=== PATIENT | female | born 1940 | race Caucasian/White ===

== ENCOUNTER 2020-03-24 09:51 | Inpatient (IN) ==
[2020-03-24] MEDS ORDERED: ONDANSETRON 4 MG/2 ML VIAL IV ONE (10:18)
[2020-03-24] MEDS ORDERED: 0.9 % SODIUM CHLORIDE 1,000 ML IV ONE (10:18)
--- NOTE | 2020-03-24 10:20 | Emergency Department Note ---
Abdominal Pain HPI General Chief Complaint: Abdominal Pain Stated Complaint: Bowel Obstruction, UTI Time Seen by Provider: 03/24/20 09:55 Source: patient Mode of arrival: ambulatory Limitations: no limitations History of Present Illness HPI Narrative: Narrative: 79-year-old female comes in for nausea and vomiting th is morning. She is not able to hold anything down. She was discharged from [facility] [address] Bean, general surgeon, after being in the hospital for a bowel obstruction. She was able to have a bowel obstruction before leaving the hospital but has not had one since. However she is passing gas. She denies any fever chills cough congestion or shortness of breath. No exposure to Covid and Covid test was negative in the hospital last week. She is urinating well since having a Arevalo catheter placed for urinary retention. She has that replaced every month at urology. She currently has a leg bag on. Advises me that she gets very nauseous with pain medicine but is having severe pain such that she could not sleep last night-she did try to take some pain medicine but it did not help much She has a history of nephrectomy for renal cell carcinoma. She has had multiple other [facility] surgeries including prior colectomy, hysterectomy for endometrial cancer, and cholecystectomy Dr. Lee is her kidney doctor Related Data Home Medications Medication Instructions Recorded Confirmed cholecalciferol (vitamin D3) 5,000 unit PO DAILY 07/14/19 03/24/20 cyanocobalamin (vitamin B-12) 1,000 mcg IJ MONTHLY 07/14/19 03/24/20 hydrochlorothiazide 12.5 mg tablet 12.5 mg PO QAM 02/28/20 03/24/20 Allergies Allergy/AdvReac Type Severity Reaction Status Date / Time monosodium glutamate AdvReac Mild Sneezing Verified 02/28/20 15:04 morphine AdvReac Mild Nausea Verified 02/28/20 15:04 sulfates found in food AdvReac Mild Sneezing Uncoded 01/24/20 14:40 Review of Systems ROS ROS Narrative: Narrative: All systems ED: reviewed and negative except as stated. PFSH Narrative Patient History Narrative: Narrative: Medical/Surgical/Family History All Active Problems (Updated 03/24/20 @ 15:23 by Lisandra Smith MD) Chronic renal failure, stage 3 (moderate) (Acute) Flank pain (Acute) Partial obstruction of small intestine (Acute) Urine retention (Acute) Renal mass (Chronic) History of radiation therapy (Chronic) Cyst (Chronic) Paresthesia of lower extremity (Chronic) Temperature intolerance (Chronic) Dry mouth (Chronic) Weight loss (Chronic) Cellulitis of eyelid (Chronic) Chest tightness (Chronic) Hydronephrosis (Chronic) Fatigue (Chronic) Acute kidney injury (Chronic) Osteopenia (Chronic) Dysuria (Chronic) Adenocarcinoma (Chronic) Malignant neoplasm of endometrium (Chronic) Other fatigue (Chronic) Other primary thrombocytopenia (Chronic) Generalized enlarged lymph nodes (Chronic) Pain in left knee (Chronic) Fatty liver (Chronic) Morbidly obese (Chronic) Abnormal glucose (Chronic) Low back pain (Chronic) Paresthesia of skin (Chronic) Hyperglyceridemia, pure (Chronic) Disorder of bone density and structure, unspecified (Chronic) Osteoarthritis of hip (Chronic) Umbilical hernia without obstruction or gangrene (Chronic) Ventral hernia without obstruction or gangrene (Chronic) Malignant neoplasm of unspecified kidney, except renal pelvis (Chronic) Encounter for screening for malignant neoplasm of colon (Chronic) Vitamin B deficiency (Chronic) Encounter for screening mammogram for malignant neoplasm of breast (Chronic) Impacted cerumen, bilateral (Chronic) Abdominal pain (Chronic) Urinary system disease (Chronic) Hyperlipidemia (Chronic) Renal osteodystrophy (Chronic) Vitamin D deficiency (Chronic) Anemia (Chronic) Cough (Chronic) Splenomegaly (Chronic) Left kidney mass (Chronic) Neurogenic bladder (Chronic) Kidney disease, chronic, stage III (GFR 30-59 ml/min) (Chronic) Overactive bladder (Chronic) Nocturia (Chronic) Hydronephrosis due to obstruction of bladder (Chronic) Edema (Chronic) Arevalo catheter in place (Chronic ~10/2017) Bladder outlet obstruction (Chronic ~10/2017) Renal cell carcinoma (Chronic) Hypertension (Chronic) CKD (chronic kidney disease) (Chronic) Medical History Abdominal pain (Chronic) Abnormal glucose (Chronic) Acute kidney injury (Chronic) Adenocarcinoma (Chronic) Anemia (Chronic) Bladder outlet obstruction (Chronic ~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) Cellulitis of eyelid (Chronic) Chest tightness (Chronic) CKD (chronic kidney disease) (Chronic) Cough (Chronic) Cyst (Chronic) Disorder of bone density and structure, unspecified (Chronic) Dry mouth (Chronic) Dysuria (Chronic) Edema (Chronic) Encounter for screening for malignant neoplasm of colon (Chronic) Encounter for screening mammogram for malignant neoplasm of breast (Chronic) Fatigue (Chronic) Fatty liver (Chronic) Arevalo catheter in place (Chronic ~10/2017) Generalized enlarged lymph nodes (Chronic) History of mammogram (Chronic 12/20/08) History of radiation therapy (Chronic) Hydronephrosis (Chronic) 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, pure (Chronic) Hyperlipidemia (Chronic) Hypertension (Chronic) Impacted cerumen, bilateral (Chronic) Kidney disease, chronic, stage III (GFR 30-59 ml/min) (Chronic) Left kidney mass (Chronic) Low back pain (Chronic) Malignant neoplasm of endometrium (Chronic) Malignant neoplasm of unspecified kidney, except renal pelvis (Chronic) Morbidly obese (Chronic) Neurogenic bladder (Chronic) Nocturia (Chronic) Osteoarthritis of hip (Chronic) Osteopenia (Chronic) Other fatigue (Chronic) Other primary thrombocytopenia (Chronic) Overactive bladder (Chronic) Pain in left knee (Chronic) Paresthesia of lower extremity (Chronic) Paresthesia of skin (Chronic) Renal cell carcinoma (Chronic) Renal mass (Chronic) Renal osteodystrophy (Chronic) Splenomegaly (Chronic) Temperature intolerance (Chronic) Umbilical hernia without obstruction or gangrene (Chronic) Urinary system disease (Chronic) Ventral hernia without obstruction or gangrene (Chronic) Vitamin B deficiency (Chronic) Vitamin D deficiency (Chronic) Weight loss (Chronic) Surgical History H/O kidney removal (Chronic) H/O: hysterectomy (Chronic) History of bowel resection (Chronic) History of carpal tunnel release (Chronic) History of cholecystectomy (Chronic) History of knee surgery (Chronic) History of oophorectomy (Chronic) History of partial gastrectomy (Chronic) Family History Sister FHx: kidney cancer x2 sisters. Melanoma Renal cell carcinoma Daughter Melanoma Mother , 75 Bruising Bleeding Blood clotting tendency Father , 75 Heart disease Myocardial infarction Sister , 49 Encephalitis Other Malignant neoplasm Social History Smoking Status: Former smoker Alcohol Intake Frequency: 0-2 drinks per day Substance Use: does not use Exam Narrative Narrative: Narrative: Normocephalic atraumatic. Conjunctive are clear sclerae white nonicteric. No nasal discharge or congestion. Oropharynx pink and moist. Neck is supple without lymphadenopathy or thyromegaly. Heart is regular rate and rhythm no murmur appreciated. Lungs clear to auscultation bilaterally without wheezes rales rhonchi or respiratory distress. Abdomen is soft diffusely tender but I do not see any point tenderness; overweight. Normal acti ve bowel sounds. No pedal edema. She is alert oriented able to answer questions appropriately General Limitations: no limitations Course Vital Signs Vital signs: Vital Signs Temperature 97.5 F 03/24/20 09:52 Pulse Rate 87 03/24/20 09:52 Respiratory Rate 18 03/24/20 09:52 Blood Pressure 125/83 03/24/20 09:52 Pulse Oximetry (%) 97 03/24/20 09:52 Temperature 97.9 F 03/24/20 19:04 Pulse Rate 71 03/24/20 19:04 Respiratory Rate 18 03/24/20 19:04 Blood Pressure 97/61 03/24/20 19:04 Pulse Oximetry (%) 95 03/24/20 19:04 MDM MDM Narrative Medical decision making narrative: Narrative: Concern for repeat bowel obstruction versus ileus. We will get records from [facility]. Laboratory and x-ray ordered. Start pain medicine nausea medicine IV fluid X-ray of the abdomen shows air-fluid levels on the upright consistent with recurrence of partial bowel obstruction. Supine films with bowel gas pattern suggestive of same Labs showed no acute change. Covid screening is negative Discussed findings with the patient and with general surgeon . He agreed to come see the patient in the ER-she is admitted from the ER Medical Records Medical records reviewed: Yes I reviewed the patient's medical records. Medical records narrative: Reviewed records from recent stay at [facility] including history and physical, general surgical consultation and discharge summary. She was treated for small bowel obstruction versus ileus plus urinary tract infection Lab Data Lab results reviewed: Yes I reviewed the patient's lab results. Result diagrams: 03/24/20 10:48 03/24/20 10:48 Labs: Lab Results 03/24/20 03/24/20 03/24/20 Range/Units 10:48 10:48 10:48 WBC 9.7 (4.5-11.0) K/mcL RBC 4.24 (4.00-5.20) M/mcL Hgb 13.1 (12.0-15.0) g/dL Hct 39.5 (36.0-48.0) % MCV 93.2 (80.0-100.0) fL MCH 30.9 (26.0-34.0) pg MCHC 33.2 (31.0-36.0) g/dL RDW 12.9 (11.5-14.5) % Plt Count 167 (140-440) K/mcL MPV 11.5 H (7.4-10.4) fL Neut % (Auto) 86.6 H (38.0-78.0) % Lymph % (Auto) 7.7 L (15.0-49.0) % [place] % (Auto) 4.5 (1.0-12.0) % Eos % (Auto) 1.0 (0.0-7.0) % Baso % (Auto) 0.2 (0.0-2.0) % Lymph # (Auto) 0.75 L (1.50-4.80) K/mcL [place] # (Auto) 0.44 (0.10-0.90) K/mcL Eos # (Auto) 0.10 (0.00-0.70) K/mcL Baso # (Auto) 0.02 (0.00-0.20) K/mcL Absolute Neutrophils 8.39 H (1.80-8.00) K/mcL VBG Lactic Acid 1.5 (0.5-2.0) mmol/L Sodium 139 (133-145) mmol/L Potassium 3.7 (3.3-5.1) mmol/L Chloride 101 (96-108) mmol/L Carbon Dioxide 24 (22-30) mmol/L Anion Gap 14.0 (8.0-16.0) BUN 40 H (8-23) mg/dL Creatinine 2.7 H (0.6-1.1) mg/dL GFR Calculation 16 Glucose 127 H (70-105) mg/dL Calcium 9.2 (8.6-10.4) mg/dL Total Bilirubin 0.4 (0.1-1.0) mg/dL AST 16 (<32) U/L ALT 7 (<40) U/L Alkaline Phosphatase 122 H (39-117) U/L Total Protein 7.1 (5.9-8.4) gm/dL Albumin 3.5 (3.2-5.2) gm/dL Globulin 3.6 (2.2-3.7) gm/dL Albumin/Globulin Ratio 1.0 (1.0-2.3) Lipase 30 (7-60) U/L Urine Color Urine Appearance (Clear) Urine pH (5.0-9.0) Ur Specific [place] (1.000-1.035) Urine Protein (Negative) mg/dL Urine Glucose (UA) (Negative) mg/dL Urine Ketones (Negative) mg/dL Urine Occult Blood (Negative) mg/dL Urine Nitrate (Negative) Urine Bilirubin (Negative) mg/dL Urine Urobilinogen mg/dL Ur Leukocyte Esterase (Negative) /ug Urine RBC (0-3) /hpf Urine WBC (0-4) /hpf Ur Squamous Epith Cells (0-4) /hpf Urine Bacteria (0) /hpf Hyaline Casts (0-2) /lph Granular Casts (0-0) /lph Urine Mucus (None) /hpf Ur Culture Indicated? 03/24/20 Range/Units 11:28 WBC (4.5-11.0) K/mcL RBC (4.00-5.20) M/mcL Hgb (12.0-15.0) g/dL Hct (36.0-48.0) % MCV (80.0-100.0) fL MCH (26.0-34.0) pg MCHC (31.0-36.0) g/dL RDW (11.5-14.5) % Plt Count (140-440) K/mcL MPV (7.4-10.4) fL Neut % (Auto) (38.0-78.0) % Lymph % (Auto) (15.0-49.0) % [place] % (Auto) (1.0-12.0) % Eos % (Auto) (0.0-7.0) % Baso % (Auto) (0.0-2.0) % Lymph # (Auto) (1.50-4.80) K/mcL [place] # (Auto) (0.10-0.90) K/mcL Eos # (Auto) (0.00-0.70) K/mcL Baso # (Auto) (0.00-0.20) K/mcL Absolute Neutrophils (1.80-8.00) K/mcL VBG Lactic Acid (0.5-2.0) mmol/L Sodium (133-145) mmol/L Potassium (3.3-5.1) mmol/L Chloride (96-108) mmol/L Carbon Dioxide (22-30) mmol/L Anion Gap (8.0-16.0) BUN (8-23) mg/dL Creatinine (0.6-1.1) mg/dL GFR Calculation Glucose (70-105) mg/dL Calcium (8.6-10.4) mg/dL Total Bilirubin (0.1-1.0) mg/dL AST (<32) U/L ALT (<40) U/L Alkaline Phosphatase (39-117) U/L Total Protein (5.9-8.4) gm/dL Albumin (3.2-5.2) gm/dL Globulin (2.2-3.7) gm/dL Albumin/Globulin Ratio (1.0-2.3) Lipase (7-60) U/L Urine Color Yellow Urine Appearance Clear (Clear) Urine pH 5.0 (5.0-9.0) Ur Specific [place] 1.021 (1.000-1.035) Urine Protein 100 A (Negative) mg/dL Urine Glucose (UA) Negative (Negative) mg/dL Urine Ketones 5 A (Negative) mg/dL Urine Occult Blood 0.20 (Negative) mg/dL Urine Nitrate Negative (Negative) Urine Bilirubin Negative (Negative) mg/dL Urine Urobilinogen Negative mg/dL Ur Leukocyte Esterase 25 A (Negative) /ug Urine RBC 20 H (0-3) /hpf Urine WBC 5 H (0-4) /hpf Ur Squamous Epith Cells 6 H (0-4) /hpf Urine Bacteria Few A (0) /hpf Hyaline Casts 1 (0-2) /lph Granular Casts 5 H (0-0) /lph Urine Mucus Few A (None) /hpf Ur Culture Indicated? No Radiology Data Radiology results reviewed: Yes I reviewed the patient's radiology results. Discharge Plan Patient/Caregiver Discharge Instructions Pt seen by FELT CUTTING MACHINE OPERATOR/PA only: No Clinical Impression: Partial obstruction of small intestine Patient Disposition: Xfer As Inpt ([facility]) Condition: Fair Discharge Date/Time: 03/24/20 15:55
[2020-03-24] MEDS: HYDROmorphone 0.5 MG/0.5 ML SYRINGE IV PRN ×3 (11:05→17:04)
[2020-03-24 11:35] LABS: Basophils # (Auto) 0.02 K/mcL (0.00-0.20); Basophils % (Auto) 0.2 % (0.0-2.0); Hematocrit 39.5 % (36.0-48.0); Hemoglobin 13.1 g/dL (12.0-15.0); Lymphocytes # (Auto) 0.75 K/mcL (1.50-4.80); Lymphocytes % (Auto) 7.7 % (15.0-49.0); Mean Cell Volume 93.2 fL (80.0-100.0); Mean Corpuscular HGB Conc 33.2 g/dL (31.0-36.0); Mean Platelet Volume 11.5 fL (7.4-10.4); Monocytes # (Auto) 0.44 K/mcL (0.10-0.90); Monocytes % (Auto) 4.5 % (1.0-12.0); Neutrophils % (Auto) 86.6 % (38.0-78.0); Platelet Count 167 K/mcL (140-440); RBC 4.24 M/mcL (4.00-5.20); Red Cell Distribution Width 12.9 % (11.5-14.5); WBC 9.7 K/mcL (4.5-11.0)
[2020-03-24 11:53] LABS: ALT/SGPT 7 U/L (<40); AST/SGOT 16 U/L (<32); Albumin 3.5 gm/dL (3.2-5.2); Alkaline Phosphatase 122 U/L (39-117); Bilirubin,Total 0.4 mg/dL (0.1-1.0); Blood Urea Nitrogen 40 mg/dL (8-23); Calcium 9.2 mg/dL (8.6-10.4); Carbon Dioxide 24 mmol/L (22-30); Chloride 101 mmol/L (96-108); Globulin 3.6 gm/dL (2.2-3.7); Glomerular Filtration Rate 16; Glucose 127 mg/dL (70-105)
--- NOTE | 2020-03-24 12:01 | XRay Report ---
CLINICAL INFORMATION: Bowel obstruction, nv COMPARISON: None. FINDINGS: The stomach, duodenal multiple loops of jejunum are mildly dilated with air-fluid levels. The distal small bowel and colon are decompressed. No free air, soft tissue mass or organomegaly. IMPRESSION: Partial distal small bowel obstruction Interpreted and Authenticated by: Ryan Dowling 03/24/20
[2020-03-24 12:57] LABS: Appearance,Urine CLEAR (Clear); Bacteria,Urine FEW /hpf (0); Bilirubin,Urine Negative (Negative); Color,Urine YELLOW; Culture Indicated,Urine No; Glucose,Urine (UA) Negative (Negative); Ketones,Urine 5 mg/dL (Negative); Leukocyte Esterase,Urine 25 /ug (Negative); Mucus,Urine FEW /hpf; Nitrate,Urine Negative (Negative); Protein,Urine 100 mg/dL (Negative); Specific Gravity,Urine 1.021 (1.000-1.035); Urine Granular Cast 5 /lph (0-0); Urine Hyaline Cast 1 /lph (0-2); Urine RBC 20 /hpf (0-3); Urine Squamous Epithelial Cell 6 /hpf (0-4); Urine WBC 5 /hpf (0-4); Urobilinogen,Urine Negative
--- NOTE | 2020-03-24 15:19 | General Surg History&Physical ---
HPI History of Present Illness Patient information: Note initiated : 03/24/20 at 3:08 pm Service Date, if different from initiated Date: [] Patient: Kaylyn Rodriguez a 79 y/o F admitted on for Bowel Obstruction, UTI. Chief Complaint: [] Chief complaint: partial small bowel obstruction History of present illness: Ms. Rodriguez is a 79 year old F was admitted through the ER for evaluation of recurrent abdominal distention with nausea and vomiting. The patient was recently admitted to [facility] on and march with complaint of abdominal pain, nausea and vomiting. She was treated and released on Friday of this week. Said she did well for 1 day but then had recurrent symptoms which started on yesterday. She has severe pain with nausea and vomiting brown emesis. She also had increased abdominal distention. Patient came to the emergency room where plain films suggest either severe adynamic ileus or partial obstruction. Patient is status post status post partial gastrectomy, abdominal hysterectomy with bilateral salpingo- oophorectomy, incisional hernia repair, partial bowel resection, cho lecystectomy, bilateral oophorectomy, left nephrectomy. She has also had radiation therapy to her abdomen related to her left nephrectomy. Patient has no history of heart disease. She had a negative stress test in September 2019. She has chronic bladder outlet obstruction, which requires chronic Arevalo catheter placement with changes monthly. She also has chronic renal failure related to her previous nephrectomy as well as episodes of bladder outlet obstruction and hydronephrosis. Constitutional Constitutional: Present chills, fatigue, malaise, weakness and weight gain EENT Ears: Absent decreased hearing and ear pain Nose, mouth and throat: Absent hoarseness Cardiovascular Cardiovascular: Absent chest pain, chest pain at rest, dyspnea on exertion and edema Respiratory Respiratory: Absent cough, dyspnea, wheezing and chest congestion Gastrointestinal Gastrointestinal: Present abdominal pain, belching, bloating, change in bowel habits, constipation, cramping, nausea and vomiting Genitourinary Genitourinary: Present change in urinary stream, difficulty urinating, difficulty voiding, dysuria and urinary urgency Musculoskeletal Musculoskeletal: Present arthralgias, back pain, muscle weakness, myalgias, stiffness and tingling; Absent atrophy, muscle cramps and numbness Integumentary Integumentary: Absent pruritus and rash Neurological Neurological: Present restless legs; Absent dizziness, memory loss, numbness and sensory deficit Psychiatric Psychiatric: Present anxiety and depression Endocrine Endocrine: Present change in body appearance and fatigue; Absent palpitations Hematologic/Lymphatic Hematologic/Lymphatic: Present easy bleeding, easy bruising and lymphadenopathy PFSH PFSH All Active Problems (Updated 03/24/20 @ 15:23 by Lisandra Smith MD) Chronic renal failure, stage 3 (moderate) (Acute) Flank pain (Acute) Partial obstruction of small intestine (Acute) Urine retention (Acute) Renal mass (Chronic) History of radiation therapy (Chronic) Cyst (Chronic) Paresthesia of lower extremity (Chronic) Temperature intolerance (Chronic) Dry mouth (Chronic) Weight loss (Chronic) Cellulitis of eyelid (Chronic) Chest tightness (Chronic) Hydronephrosis (Chronic) Fatigue (Chronic) Acute kidney injury (Chronic) Osteopenia (Chronic) Dysuria (Chronic) Adenocarcinoma (Chronic) Malignant neoplasm of endometrium (Chronic) Other fatigue (Chronic) Other primary thrombocytopenia (Chronic) Generalized enlarged lymph nodes (Chronic) Pain in left knee (Chronic) Fatty liver (Chronic) Morbidly obese (Chronic) Abnormal glucose (Chronic) Low back pain (Chronic) Paresthesia of skin (Chronic) Hyperglyceridemia, pure (Chronic) Disorder of bone density and structure, unspecified (Chronic) Osteoarthritis of hip (Chronic) Umbilical hernia without obstruction or gangrene (Chronic) Ventral hernia without obstruction or gangrene (Chronic) Malignant neoplasm of unspecified kidney, except renal pelvis (Chronic) Encounter for screening for malignant neoplasm of colon (Chronic) Vitamin B deficiency (Chronic) Encounter for screening mammogram for malignant neoplasm of breast (Chronic) Impacted cerumen, bilateral (Chronic) Abdominal pain (Chronic) Urinary system disease (Chronic) Hyperlipidemia (Chronic) Renal osteodystrophy (Chronic) Vitamin D deficiency (Chronic) Anemia (Chronic) Cough (Chronic) Splenomegaly (Chronic) Left kidney mass (Chronic) Neurogenic bladder (Chronic) Kidney disease, chronic, stage III (GFR 30-59 ml/min) (Chronic) Overactive bladder (Chronic) Nocturia (Chronic) Hydronephrosis due to obstruction of bladder (Chronic) Edema (Chronic) Arevalo catheter in place (Chronic ~10/2017) Bladder outlet obstruction (Chronic ~10/2017) Renal cell carcinoma (Chronic) Hypertension (Chronic) CKD (chronic kidney disease) (Chronic) Medical History Abdominal pain (Chronic) Abnormal glucose (Chronic) Acute kidney injury (Chronic) Adenocarcinoma (Chronic) Anemia (Chronic) Bladder outlet obstruction (Chronic ~10/2017) Cellulitis of eyelid (Chronic) Chest tightness (Chronic) CKD (chronic kidney disease) (Chronic) Cough (Chronic) Cyst (Chronic) Disorder of bone density and structure, unspecified (Chronic) Dry mouth (Chronic) Dysuria (Chronic) Edema (Chronic) Encounter for screening for malignant neoplasm of colon (Chronic) Encounter for screening mammogram for malignant neoplasm of breast (Chronic) Fatigue (Chronic) Fatty liver (Chronic) Arevalo catheter in place (Chronic ~10/2017) Generalized enlarged lymph nodes (Chronic) History of mammogram (Chronic 12/20/08) History of radiation therapy (Chronic) Hydronephrosis (Chronic) 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, pure (Chronic) Hyperlipidemia (Chronic) Hypertension (Chronic) Impacted cerumen, bilateral (Chronic) Kidney disease, chronic, stage III (GFR 30-59 ml/min) (Chronic) Left kidney mass (Chronic) Low back pain (Chronic) Malignant neoplasm of endometrium (Chronic) Malignant neoplasm of unspecified kidney, except renal pelvis (Chronic) Morbidly obese (Chronic) Neurogenic bladder (Chronic) Nocturia (Chronic) Osteoarthritis of hip (Chronic) Osteopenia (Chronic) Other fatigue (Chronic) Other primary thrombocytopenia (Chronic) Overactive bladder (Chronic) Pain in left knee (Chronic) Paresthesia of lower extremity (Chronic) Paresthesia of skin (Chronic) Renal cell carcinoma (Chronic) Renal mass (Chronic) Renal osteodystrophy (Chronic) Splenomegaly (Chronic) Temperature intolerance (Chronic) Umbilical hernia without obstruction or gangrene (Chronic) Urinary system disease (Chronic) Ventral hernia without obstruction or gangrene (Chronic) Vitamin B deficiency (Chronic) Vitamin D deficiency (Chronic) Weight loss (Chronic) Surgical History H/O kidney removal (Chronic) H/O: hysterectomy (Chronic) History of bowel resection (Chronic) History of carpal tunnel release (Chronic) History of cholecystectomy (Chronic) History of knee surgery (Chronic) History of oophorectomy (Chronic) History of partial gastrectomy (Chronic) Family History Sister FHx: kidney cancer x2 sisters. Melanoma Renal cell carcinoma Daughter Melanoma Mother , 75 Bruising Bleeding Blood clotting tendency Father , 75 Heart disease Myocardial infarction Sister , 49 Encephalitis Other Malignant neoplasm Social History marital status: occupational status: retired occupation: [employer] other: Children-2 smoking status: Former smoker alcohol intake frequency: 0-2 drinks per day substance use type: does not use MEDS/ALLERGIES Home Medications and Allergies Home Medications Medication Instructions Recorded Confirmed Type cholecalciferol (vitamin D3) 5,000 unit PO DAILY 07/14/19 02/28/20 History cyanocobalamin (vitamin B-12) 1,000 mcg IJ MONTHLY 07/14/19 02/28/20 History potassium chloride PO 09/15/19 02/28/20 History epoetin debbie-epbx 10,000 unit/mL 10,000 unit SUB-Q [id number] ml 09/23/19 02/28/20 History injection solution ciprofloxacin PO QDAY 02/28/20 02/28/20 History hydrochlorothiazide 12.5 mg tablet 12.5 mg PO QAM 02/28/20 02/28/20 History Allergies Allergy/AdvReac Type Severity Reaction Status Date / Time monosodium glutamate AdvReac Mild Sneezing Verified 02/28/20 15:04 morphine AdvReac Mild Nausea Verified 02/28/20 15:04 sulfates found in food AdvReac Mild Sneezing Uncoded 01/24/20 14:40 Physical Examination Vital Signs Vital signs: Temp Pulse Resp BP Pulse Ox 97.5 F 79 16 123/66 96 03/24/20 09:52 03/24/20 13:50 03/24/20 13:50 03/24/20 13:50 03/24/20 13:50 General physical appearance General physical exam: well developed, well nourished and moderate pain Eyes Eye exam: PERRL, normal ocular movement and pale ENT ENT exam: normal pinna, normal nares, normal mucosa, no hearing loss and decreased hearing Head Head exam IM: Present atraumatic, normal inspection and normocephalic Neck Neck exam: no masses, no bruits, trachea midline, no lymphadenopathy and no venous distension Cardiovascular Cardiovascular exam IM: Present normal rate and rhythm, irregular rhythm, +S1 and +S2; Absent JVD Respiratory Respiratory exam: normal expansion, normal respiratory effort, clear to percussion and clear to auscultation Abdomen Abdomen: Present soft, non tender, tender and bowel sounds Integumentary Integumentary: Present no rash, no growths and no abnormal pigmentation Neurologic Neurologic: Present normal coordination and normal sensation Musculoskeletal Musculoskeletal: Present normal gait and normal posture Psychiatric Psychiatric: Present oriented to time, oriented to person, oriented to place, speech is normal and memory intact Results Labs Result diagrams: 03/24/20 10:48 03/24/20 10:48 Labs: Abnormal lab results 03/24/20 03/24/20 03/24/20 Range/Units 10:48 10:48 11:28 MPV 11.5 H (7.4-10.4) fL Neut % (Auto) 86.6 H (38.0-78.0) % Lymph % (Auto) 7.7 L (15.0-49.0) % Lymph # (Auto) 0.75 L (1.50-4.80) K/mcL Absolute Neutrophils 8.39 H (1.80-8.00) K/mcL BUN 40 H (8-23) mg/dL Creatinine 2.7 H (0.6-1.1) mg/dL Glucose 127 H (70-105) mg/dL Alkaline Phosphatase 122 H (39-117) U/L Urine Protein 100 A (Negative) mg/dL Urine Ketones 5 A (Negative) mg/dL Ur Leukocyte Esterase 25 A (Negative) /ug Urine RBC 20 H (0-3) /hpf Urine WBC 5 H (0-4) /hpf Ur Squamous Epith Cells 6 H (0-4) /hpf Urine Bacteria Few A (0) /hpf Granular Casts 5 H (0-0) /lph Urine Mucus Few A (None) /hpf Diabetes panel 03/24/20 Range/Units 10:48 Sodium 139 (133-145) mmol/L Potassium 3.7 (3.3-5.1) mmol/L Chloride 101 (96-108) mmol/L Carbon Dioxide 24 (22-30) mmol/L BUN 40 H (8-23) mg/dL Creatinine 2.7 H (0.6-1.1) mg/dL Glucose 127 H (70-105) mg/dL Calcium 9.2 (8.6-10.4) mg/dL AST 16 (<32) U/L ALT 7 (<40) U/L Alkaline Phosphatase 122 H (39-117) U/L Total Protein 7.1 (5.9-8.4) gm/dL Albumin 3.5 (3.2-5.2) gm/dL Calcium panel 03/24/20 Range/Units 10:48 Calcium 9.2 (8.6-10.4) mg/dL Albumin 3.5 (3.2-5.2) gm/dL Pituitary panel 03/24/20 Range/Units 10:48 Sodium 139 (133-145) mmol/L Potassium 3.7 (3.3-5.1) mmol/L Chloride 101 (96-108) mmol/L Carbon Dioxide 24 (22-30) mmol/L BUN 40 H (8-23) mg/dL Creatinine 2.7 H (0.6-1.1) mg/dL Glucose 127 H (70-105) mg/dL Calcium 9.2 (8.6-10.4) mg/dL Adrenal panel 03/24/20 Range/Units 10:48 Sodium 139 (133-145) mmol/L Potassium 3.7 (3.3-5.1) mmol/L Chloride 101 (96-108) mmol/L Carbon Dioxide 24 (22-30) mmol/L BUN 40 H (8-23) mg/dL Creatinine 2.7 H (0.6-1.1) mg/dL Glucose 127 H (70-105) mg/dL Calcium 9.2 (8.6-10.4) mg/dL Total Bilirubin 0.4 (0.1-1.0) mg/dL AST 16 (<32) U/L ALT 7 (<40) U/L Alkaline Phosphatase 122 H (39-117) U/L Total Protein 7.1 (5.9-8.4) gm/dL Albumin 3.5 (3.2-5.2) gm/dL All other labs normal. A/P Assessment and plan (1) Partial obstruction of small intestine: Status: Acute (2) Chronic renal failure, stage 3 (moderate): Status: Acute Qualifiers: Chronic kidney disease stage 3 subtype: stage 3a (GFR 45-59) Qualified Code(s): N18.31 - Chronic kidney disease, stage 3a (3) Malignant neoplasm of unspecified kidney, except renal pelvis: Status: Chronic Qualifiers: Laterality: left Qualified Code(s): C64.2 - Malignant neoplasm of left kidney, except renal pelvis (4) Neurogenic bladder: Status: Chronic (5) Hypertension: Status: Chronic Qualifiers: Hypertension type: essential hypertension Qualified Code(s): I10 - Essential (primary) hypertension Narrative A/P Narrative: ice chips and popsicles. Reglan 10 mg IV every 6 hours Relistor 12 mg subcutaneous daily 4 doses Follow-up abdominal x-rays in the morning. Probable small bowel follow-through in the morning. Repeat CBC and inpatient panel daily. IV normal saline at 100 cc per hour Time Spent With Patient Time: Total time spent is greater than 50% in coordination of care (as documented) at patient's floor/unit and/or counseling patient:
[2020-03-24] MEDS ORDERED: LORazepam 2 MG/ML VIAL IV PRN (15:29)
[2020-03-24] MEDS: 0.9 % SODIUM CHLORIDE 1,000 ML IV SCH (16:15)
[2020-03-24] MEDS: METHYLNALTREXONE BROMIDE 12 MG/0.6 ML SYRINGE SQ SCH (16:18)
[2020-03-24] MEDS: ONDANSETRON 4 MG/2 ML VIAL IV PRN (17:04)
[2020-03-24] MEDS: 0.9 % SODIUM CHLORIDE 10 ML SYRINGE IV SCH (20:44)
[2020-03-25] MEDS: 0.9 % SODIUM CHLORIDE 1,000 ML IV SCH ×3 (02:22→21:41)
[2020-03-25] MEDS: HYDROmorphone 0.5 MG/0.5 ML SYRINGE IV PRN ×2 (02:22→05:55)
[2020-03-25] MEDS: ONDANSETRON 4 MG/2 ML VIAL IV PRN (05:56)
[2020-03-25 06:25] LABS: Basophils # (Auto) 0.02 K/mcL (0.00-0.20); Basophils % (Auto) 0.3 % (0.0-2.0); Eosinophils % (Auto) 1.5 % (0.0-7.0); Hematocrit 33.3 % (36.0-48.0); Hemoglobin 10.8 g/dL (12.0-15.0); Lymphocytes # (Auto) 0.66 K/mcL (1.50-4.80); Lymphocytes % (Auto) 9.9 % (15.0-49.0); Mean Cell Volume 95.1 fL (80.0-100.0); Mean Corpuscular HGB Conc 32.4 g/dL (31.0-36.0); Mean Platelet Volume 11.4 fL (7.4-10.4); Monocytes # (Auto) 0.35 K/mcL (0.10-0.90); Monocytes % (Auto) 5.2 % (1.0-12.0); Neutrophils % (Auto) 83.1 % (38.0-78.0); Platelet Count 135 K/mcL (140-440); WBC 6.7 K/mcL (4.5-11.0)
[2020-03-25] MEDS: 0.9 % SODIUM CHLORIDE 10 ML SYRINGE IV SCH ×2 (06:27→14:12)
[2020-03-25 06:52] LABS: ALT/SGPT 35 U/L (<40); AST/SGOT 52 U/L (<32); Albumin 2.8 gm/dL (3.2-5.2); Albumin/Globulin Ratio 0.9 (1.0-2.3); Alkaline Phosphatase 156 U/L (39-117); Bilirubin,Direct < 0.2 mg/dL (<0.3); Bilirubin,Total 0.3 mg/dL (0.1-1.0); Blood Urea Nitrogen 39 mg/dL (8-23); Calcium 8.3 mg/dL (8.6-10.4); Carbon Dioxide 21 mmol/L (22-30); Chloride 109 mmol/L (96-108); Glomerular Filtration Rate 17; Glucose 72 mg/dL (70-105); Lactate Dehydrogenase 190 U/L (135-225); Phosphorous 4.1 mg/dL (2.5-4.5); Triglycerides 168 mg/dL (<150)
[2020-03-25] MEDS ORDERED: PROMETHAZINE 25 MG/ML VIAL IV PRN (08:35)
[2020-03-25] MEDS: METHYLNALTREXONE BROMIDE 12 MG/0.6 ML SYRINGE SQ SCH (10:08)
--- NOTE | 2020-03-25 12:09 | XRay Report ---
CLINICAL INFORMATION: preop evaluation COMPARISON: None. FINDINGS: Heart size, mediastinum and pulmonary vessels are normal. There is minor left basilar atelectasis and tiny left pleural effusion. Few tiny calcified granulomas present in the perihilar regions. IMPRESSION: Minor left basilar atelectasis. Interpreted and Authenticated by: Ryan Dowling 03/25/20
--- NOTE | 2020-03-25 14:17 | General Surgery Progress Note ---
SUBJECTIVE Subjective Patient information: Note initiated : 03/25/20 at 2:12 pm Service Date, if different from initiated Date: [] Patient: Kaylyn Rodriguez 79 y/o F admitted on 03/24/20 for Bowel Obstruction, UTI. Chief Complaint: [] Principal diagnosis: partial small bowel obstruction Interval history: patient is undergoing small bowel follow-through. X-rays shows that contrast has reached the colon. She had large volume bowel movement earlier today and states that she feels better. Her abdominal distention is improved. BUN 39, creatinine 2.8, white blood count 6.7, hemoglobin 10.8, hematocrit 33.3 Constitutional Vitals: Vital Signs Temp Pulse Resp BP Pulse Ox 97.9 F 68 16 100/73 95 03/25/20 11:28 03/25/20 11:28 03/25/20 11:28 03/25/20 11:28 03/25/20 11:28 Period Temp Pulse Resp BP Sys/Yee Pulse Ox Last 24 Hr 97.3 F-98.1 F 68-79 14-18 90-125/58-83 94-97 Intake and Output 03/25/20 03/25/20 03/25/20 05:59 13:59 21:59 Intake Total 1000 1000 Output Total 150 Balance 850 1000 Weight 183 lb Patient Weight 03/26/20 05:59 Weight 183 lb Intake & Output: Intake & Output 03/25/20 03/25/20 03/25/20 05:59 13:59 21:59 Intake Total 1000 1000 Output Total 150 Balance 850 1000 Weight 183 lb Intake: IV 1000 1000 Sodium Chloride 0.9% 1,000 ml @ 1000 1000 100 mls/hr IV .Q10H [facility] Rx#: [id number] Output: Urine Catheter Amount 150 Other: Urine Appearance Cloudy Uretheral (Arevalo) Clear Urine Color Light Maggie Uretheral (Arevalo) Dark Yellow Urine Odor Normal Stool Size Copious Stool Color Brown Stool Consistency Liquid Loose # Bowel Movements 1 # of times incontinent of 1 Bowels Head Head exam: Present atraumatic, normal inspection and normocephalic Eye Eye exam: Present EOMI and normal appearance Pupils: Present PERRL Neck Neck exam: Present full ROM; Absent tenderness Respiratory Respiratory exam: Present normal respiratory exam and CTAB; Absent rales, rhonchi and wheezes Cardiovascular Cardiovascular exam: Present normal rate and rhythm, RRR, +S1 and +S2; Absent gallop and JVD GI/Abdominal GI/Abdominal exam: Present normal bowel sounds (good active bowel sounds) and soft (abdomen is much softer with no tenderness); Absent distended and mass Extremities Exam Extremities exam: Present full ROM and normal inspection; Absent pedal edema Neurological Exam Neurological exam: Present alert and oriented X3; Absent motor sensory deficit Psychiatric Psychiatric exam: Present normal mood; Absent anxious and depressed A/P Assessment and plan (1) Partial obstruction of small intestine: Status: Acute (2) Chronic renal failure, stage 3 (moderate): Status: Acute Qualifiers: Chronic kidney disease stage 3 subtype: stage 3a (GFR 45-59) Qualified Code(s): N18.31 - Chronic kidney disease, stage 3a (3) Urine retention: Status: Acute Narrative A/P Narrative: two-view abdominal x-ray in the morning. Clear liquids. Saline lock IV Time Spent With Patient Time: Total time spent is greater than 50% in coordination of care (as documented) at patient's floor/unit and/or counseling patient:
[2020-03-25] MEDS: METOCLOPRAMIDE 10 MG/2 ML VIAL IV SCH ×2 (17:23→23:58)
--- NOTE | 2020-03-25 19:46 | XRay Report ---
CLINICAL INFORMATION: Follow-up with small bowel obstruction COMPARISON: Plain films 03/24/2020 TECHNIQUE: Following advertising assistant manager imaging, water-soluble contrast was administered and abdominal serial imaging was obtained for 3.5 hours. FINDINGS: Stomach duodenum and jejunum are mildly dilated with relative decrease in the caliber ileum and right colon. Findings suggestive of partial small bowel obstruction. Exact transition point is not identified. Small bowel transit time is approximately three hours IMPRESSION: Partial small bowel obstruction in the ileum. Small bowel transit time: Three hours Interpreted and Authenticated by: Ryan Dowling 03/25/20
[2020-03-26] MEDS: 0.9 % SODIUM CHLORIDE 1,000 ML IV SCH ×3 (00:05→10:56)
[2020-03-26] MEDS: METOCLOPRAMIDE 10 MG/2 ML VIAL IV SCH ×4 (06:05→18:47)
--- NOTE | 2020-03-26 07:59 | XRay Report ---
CLINICAL INFORMATION: follow-up of partial small bowel obstruction COMPARISON: None. FINDINGS: The contrast administered for initially small bowel follow-through exam within the colon and rectum evacuated. There is mild persistent dilatation of the proximal mid small bowel loops, however the distal small bowel and colon are normal caliber. Stomach is normal. IMPRESSION: Nonspecific stool gas pattern likely atypical ileus. Interpreted and Authenticated by: Ryan Dowling 03/26/20
[2020-03-26] MEDS: METHYLNALTREXONE BROMIDE 12 MG/0.6 ML SYRINGE SQ SCH (08:37)
[2020-03-26] MEDS ORDERED: MAGNESIUM CITRATE 300 ML ORAL.SOL PO ONE (11:55)
--- NOTE | 2020-03-26 12:01 | General Surgery Progress Note ---
SUBJECTIVE Subjective Patient information: Note initiated : 03/26/20 at 11:59 am Service Date, if different from initiated Date: [] Patient: Kaylyn Rodriguez 79 y/o F admitted on 03/24/20 for Bowel Obstruction, UTI. Chief Complaint: [] Principal diagnosis: partial small bowel obstruction Interval history: patient is doing well. She has had multiple large liquid bowel movements and this passed flatus. Her abdomen is much softer. She has good active bowel sounds. Constitutional Vitals: Vital Signs Temp Pulse Resp BP Pulse Ox 98.6 F 69 16 114/60 96 03/26/20 06:33 03/26/20 06:33 03/26/20 06:33 03/26/20 06:33 03/26/20 06:33 Period Temp Pulse Resp BP Sys/Yee Pulse Ox Last 24 Hr 97.8 F-99.3 F 66-82 16-88 91-120/51-63 95-99 Intake and Output 03/25/20 03/26/20 03/26/20 21:59 05:59 13:59 Intake Total 720 1000 1480 Output Total 200 325 Balance 631 552 5274 Weight 192 lb 11.2 oz Intake & Output: Intake & Output 03/25/20 03/26/20 03/26/20 21:59 05:59 13:59 Intake Total 720 1000 1480 Output Total 200 325 Balance 692 087 0282 Weight 192 lb 11.2 oz Intake: IV 1000 1000 Sodium Chloride 0.9% 1,000 ml @ 1000 1000 100 mls/hr IV .Q10H [facility] Rx#: [id number] Oral 720 480 Output: Urine Catheter Amount 200 325 Other: Meal Breakfast Percent of Meal Consumed 100% Feeding Ability Independent Urine Appearance Cloudy Cloudy Mucous Threads Mucous Threads Uretheral (Arevalo) Clear Clear Mucous Threads Urine Color Dark Yellow Dark Yellow Uretheral (Arevalo) Light Maggie Light Maggie Urine Odor Normal Stool Size Copious Large Stool Color Brown Brown Stool Consistency Liquid Liquid Watery Loose Loose # Bowel Movements 1 1 # of times incontinent of 1 Bowels Neck Neck exam: Present full ROM; Absent tenderness Respiratory Respiratory exam: Present normal respiratory exam and CTAB; Absent rales, rhonchi and wheezes Cardiovascular Cardiovascular exam: Present normal rate and rhythm, RRR, +S1 and +S2; Absent gallop and JVD GI/Abdominal GI/Abdominal exam: Present normal bowel sounds (good active bowel sounds) and soft (abdomen is much softer with no tenderness); Absent distended and mass Extremities Exam Extremities exam: Present full ROM and normal inspection; Absent pedal edema Neurological Exam Neurological exam: Present alert and oriented X3; Absent motor sensory deficit Psychiatric Psychiatric exam: Present normal mood; Absent anxious and depressed A/P Assessment and plan (1) Partial obstruction of small intestine: Status: Acute (2) Chronic renal failure, stage 3 (moderate): Status: Acute Qualifiers: Chronic kidney disease stage 3 subtype: stage 3a (GFR 45-59) Qualified Code(s): N18.31 - Chronic kidney disease, stage 3a Narrative A/P Narrative: citrate of magnesia 1. Full liquid diet. Abdominal x-rays in a.m. Saline lock IV Time Spent With Patient Time: Total time spent is greater than 50% in coordination of care (as documented) at patient's floor/unit and/or counseling patient:
[2020-03-26] MEDS ORDERED: METOCLOPRAMIDE 10 MG TABLET ONE (18:38)
[2020-03-26] MEDS: METOCLOPRAMIDE 10 MG TABLET PO SCH ×2 (20:39→23:17)
[2020-03-27] MEDS: METOCLOPRAMIDE 10 MG TABLET PO SCH ×3 (05:52→17:47)
--- NOTE | 2020-03-27 08:54 | XRay Report ---
CLINICAL INFORMATION: FOR F/U OF ILEUS COMPARISON: 03/26/2020 FINDINGS: Small and large bowel show mild symmetric dilatation with scattered air-fluid levels compatible with ileus. No free air, soft tissue mass or organomegaly. No pathologic calcification. IMPRESSION: Moderate versus ileus Interpreted and Authenticated by: Ryan Dowling 03/27/20
[2020-03-27] MEDS: METHYLNALTREXONE BROMIDE 12 MG/0.6 ML SYRINGE SQ SCH (08:55)
--- NOTE | 2020-03-27 18:07 | Discharge Summary ---
Discharge Provider Provider Patient information: Note initiated : 03/27/20 at 5:58 pm Service Date, if different from initiated Date: [] Patient: Kaylyn Rodriguez 79 y/o F admitted on 03/24/20 for Bowel Obstruction, UTI. Chief Complaint: [] Date of admission: 03/24/20 15:51 Discharge date: 03/27/20 Primary care physician: Gaby Bradford Admitting clinician: Lisandra Smith Consults: 03/24/20 Consult to Physician [CONS] Stat Comment: Consulting Provider: Lisandra Smith Reason For Exam: Physician to Consult Attending physician on discharge: Lisandra Smith Discharging clinician: Lisandra Smith COURSE Hospital Course Hospital course: 79-year-old female admitted through the emergency room for evaluation of recurrent abdominal distention with nausea and vomiting. She was recently admitted to [facility] and was discharged on 22 March. She states that she did well for 1 day, then had recurrent symptoms which started on the day prior to admission. This consisted of severe pain with nausea and vomiting brown emesis. She also had increased abdominal distention. In our emergency room. She had radiographic evidence of leave severe adynamic ileus or partial obstruction. History is positive for partial gastrectomy, abdominal hysterectomy with bilateral salpingo-oophorectomy, incisional hernia repair, partial bowel resection, cholecystectomy, left nephrectomy. 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 Patient had small amount of flatus on the morning prior to admission. She was admitted and treated symptomatically. Small bowel follow-through was done on 25 March. This showed a transit time of 3 hours. There was no real transition point. Patient still has mild dilation of her small bowel and colon, but she is having multiple large bowel movements and is passing copious amounts of flatus. She is tolerating diet without difficulty. She is stable for discharge home. She is advised to gradually increase her diet and to refrain from eating large volume of nuts. Discharge diagnosis: partial small bowel obstruction.;chronic renal failure; neurogenic bladder; Time Spent with Patient Time attestation: Total time spent providing and/or coordinating discharge services: Physical Examination Vital Signs Vital signs: Temp Pulse Resp BP Pulse Ox 98.3 F 62 16 112/67 100 03/27/20 16:00 03/27/20 16:00 03/27/20 16:00 03/27/20 16:00 03/27/20 16:00 General physical appearance General physical exam: well developed, well nourished and moderate pain Eyes Eye exam: PERRL, normal ocular movement and pale ENT ENT exam: normal pinna, normal nares, normal mucosa, no hearing loss and decreased hearing Neck Neck exam: no masses, no bruits, trachea midline, no lymphadenopathy and no venous distension Cardiovascular Cardiovascular exam IM: Present normal rate and rhythm, irregular rhythm, +S1 and +S2; Absent JVD Respiratory Respiratory exam: normal expansion, normal respiratory effort, clear to percussion and clear to auscultation Abdomen Abdomen: Present soft, non tender, tender and bowel sounds Integumentary Integumentary: Present no rash, no growths and no abnormal pigmentation Neurologic Neurologic: Present normal coordination and normal sensation Musculoskeletal Musculoskeletal: Present normal gait and normal posture Psychiatric Psychiatric: Present oriented to time, oriented to person, oriented to place, speech is normal and memory intact Discharge Plan Patient/Caregiver Discharge Instructions Activity: increase activity as tolerated Diet: Regular Diet Prescriptions: No Action cholecalciferol (vitamin D3) 5,000 UNIT capsule 5,000 unit PO DAILY RF: 0 cyanocobalamin (vitamin B-12) 1,000 MCG/ML kit 1,000 mcg IJ MONTHLY RF: 0 hydrochlorothiazide 12.5 mg tablet 12.5 mg PO QAM RF: 0 Follow Up Plan Follow up with: Gaby Bradford MD [Primary Care Provider] - Dionicio Lee MD [Physician] - Patient Disposition: Home, Self-Care Prognosis: Good Rehab Potential: Good I certify that the patient requires SNF services: No Overall status at discharge: patient is progressing back to baseline Discharge Orders: Discharge Order (Routine); Ordered 03/27/20 Ordered By: Lisandra Smith Pending Pending Pending: Resuscitation Status Full Code Diet Full Liquid Diet Start Sun Mar 26 1155 Hydromorphone HCl (Dilaudid) 0.5 mg IV Q2HP PRN; Protocol PRN Reason: Per Pain Protocol Last Admin: 03/25/20 05:55 Dose: 0.5 mg Documented by: Admin: 03/25/20 02:22 Dose: 0.5 mg Documented by: Admin: 03/24/20 17:04 Dose: 0.5 mg Documented by: NITA Metoclopramide HCl (Reglan) 5 mg PO Q6H TAYLOR Last Admin: 03/27/20 17:47 Dose: 5 mg Documented by: Admin: 03/27/20 12:10 Dose: 5 mg Documented by: Admin: 03/27/20 05:52 Dose: 5 mg Documented by: Admin: 03/26/20 23:17 Dose: 5 mg Documented by: Admin: 03/26/20 20:39 Dose: Not Given Documented by: DIANA Ondansetron HCl (Zofran) 4 mg IV Q6HP PRN PRN Reason: Nausea And Vomiting Last Admin: 03/25/20 05:56 Dose: 4 mg Documented by: Admin: 03/24/20 17:04 Dose: 4 mg Documented by: NITA Promethazine HCl (Phenergan) 12.5 mg IV Q4HP PRN PRN Reason: Nausea And Vomiting Last Admin: 03/25/20 09:11 Dose: 12.5 mg Documented by: MARY Shift Summary 03/27/20 16:31 Shift Summary by Veda Palacio Has denied pain or nausea this shift. Up with GB, FWW, and SBA. 3 loose/liq stools. Prefers to wear attends. Chronic Arevalo in place for retention. Urine is cloudy with foul odor. Redness to pannus; anti fungal powder applied. No lines. Alan Full liq diet. VSS. Poss D/C home tomorrow. Initialized on 03/27/20 16:31 - END OF NOTE
== END 2020-03-27 19:24 | disposition home or self-care (01) | DRG 389 ==
LOC: ED 09:51 → MEDSUR 15:51
PROVIDERS: ADMIT Family Medicine Adult Medicine; ATTEND Family Medicine Adult Medicine

== ENCOUNTER 2021-01-12 04:55 | Inpatient (IN) ==
--- NOTE | 2021-01-08 15:20 | EKG ---
[facility] Test Date: 2021-01-08 Pat Name: Kaylyn Rodriguez Department: ALEX Room: Gender: Female Manager Programming: : 1940 Requested By: Lisandra Smith Order Number: [id number] Reading MD: Luke Cox Measurements Intervals [place] Rate: 82 P: LA: QRS: -24 QRSD: 86 T: -3 QT: 352 QTc: 411 Interpretive Statements ACCELERATED JUNCTIONAL RHYTHM Abnormal R wave progression. Electronically Signed On 01-08-2021 15:19:59 PDT by Luke Cox /[email or web address]/[email or web address]/[id number]
--- NOTE | 2021-01-08 18:23 | XRay Report ---
HISTORY: Preop for laparotomy, former smoker FINDINGS: The lungs are clear. The heart, mediastinum, cirilo and pleura are normal. Aorta is mildly tortuous and there are calcified plaques in the aortic arch. Spine has a kyphotic curvature. No free intra-abdominal air is present. There has been no significant change since 04/04/20. IMPRESSION: Normal chest. Interpreted and Authenticated by: Leonidas Veronica 01/08/21
[2021-01-08 21:40] LABS: INR 1.1 (0.9-1.1); Partial Thromboplastin Time 36.1 sec (20.0-37.0); Prothrombin Time 15.1 sec (11.9-14.5)
[2021-01-09 05:25] LABS: Basophils # (Auto) 0.03 K/mcL (0.00-0.30); Basophils % (Auto) 0.5 % (0.0-2.0); Eosinophils % (Auto) 1.6 % (0.0-7.0); Hematocrit 35.5 % (34.1-44.9); Hemoglobin 11.1 g/dL (11.2-15.7); Lymphocytes # (Auto) 0.42 K/mcL (1.50-4.80); Lymphocytes % (Auto) 6.7 % (15.5-49.0); Mean Cell Volume 96.2 fL (80.0-100.0); Mean Corpuscular HGB Conc 31.3 g/dL (31.0-36.0); Mean Platelet Volume 11.4 fL (7.4-10.4); Monocytes # (Auto) 0.27 K/mcL (0.10-0.90); Monocytes % (Auto) 4.3 % (1.0-12.0); Neutrophils % (Auto) 86.9 % (38.0-78.0); Platelet Count 121 K/mcL (140-440); RBC 3.69 M/mcL (3.59-5.38); Red Cell Distribution Width 13.3 % (11.5-14.5); WBC 6.3 K/mcL (4.5-11.0)
[2021-01-09 05:28] LABS: ALT/SGPT 10 U/L (<40); AST/SGOT 14 U/L (<32); Albumin 3.7 gm/dL (3.2-5.2); Albumin/Globulin Ratio 1.1 (1.0-2.3); Alkaline Phosphatase 114 U/L (39-117); Bilirubin,Total 0.3 mg/dL (0.1-1.0); Blood Urea Nitrogen 42 mg/dL (8-23); Calcium 8.6 mg/dL (8.6-10.4); Carbon Dioxide 19 mmol/L (22-30); Chloride 109 mmol/L (96-108); Globulin 3.3 gm/dL (2.2-3.7); Glomerular Filtration Rate 14; Glucose 149 mg/dL (70-105)
[2021-01-12] MEDS ORDERED: VANCOMYCIN 1,000 MG in 0.9 % SODIUM CHLORIDE 250 ML IV SCH ×2 (06:00→12:31)
[2021-01-12] MEDS ORDERED: metroNIDAZOLE 500 MG/100 ML BAG IV SCH ×2 (06:00→12:31)
[2021-01-12] MEDS ORDERED: CEFEPIME 2 GM VIAL IV SCH ×2 (06:00→12:31)
[2021-01-12] MEDS ORDERED: LIDOCAINE HCL/PF 100 MG/5 ML SYRINGE IV ONE (07:36)
[2021-01-12] MEDS ORDERED: ROPIVACAINE HCL/PF 30 ML VIAL IJ ONE (07:36)
[2021-01-12] MEDS ORDERED: GLYCOPYRROLATE 0.2 MG/ML VIAL IV ONE (07:36)
[2021-01-12] MEDS ORDERED: PHENYLephrine 1 MG/10 ML SYRINGE (ANEST) ONE (07:36)
[2021-01-12] MEDS ORDERED: NEOSTIGMINE 1 MG/ML VIAL ONE (07:36)
[2021-01-12] MEDS ORDERED: ROCURONIUM 10 MG/ML ML IV ONE (07:36)
[2021-01-12] MEDS ORDERED: ePHEDrine 50 MG/5 ML SYRINGE (ANEST) IV ONE (07:36)
[2021-01-12] MEDS ORDERED: ONDANSETRON 4 MG/2 ML VIAL ONE (07:36)
[2021-01-12] MEDS ORDERED: KETAMINE 50 MG/ML Syringe (ANEST) IV ONE (07:36)
[2021-01-12] MEDS ORDERED: PROPOFOL 200 MG/20 ML VIAL IV ONE (07:36)
[2021-01-12] MEDS ORDERED: diphenhydrAMINE 50 MG/ML VIAL ONE (07:36)
[2021-01-12] MEDS ORDERED: DEXAMETHASONE 10 MG/ML VIAL ONE (07:36)
[2021-01-12] MEDS ORDERED: fentaNYL 100 MCG/2 ML VIAL IV ONE (07:36)
[2021-01-12] MEDS ORDERED: NALOXONE HCL 0.4 MG/ML VIAL IV PRN (08:43)
[2021-01-12] MEDS ORDERED: ACETAMINOPHEN 1,000 MG/100 ML BAG IV ONE (08:43)
[2021-01-12] MEDS ORDERED: PROMETHAZINE 25 MG/ML VIAL IV PRN (08:43)
[2021-01-12] MEDS ORDERED: IPRATROPIUM/ALBUTEROL 3 ML AMPUL.NEB NEB PRN (08:43)
[2021-01-12] MEDS ORDERED: ONDANSETRON 4 MG/2 ML VIAL IV PRN (08:43)
[2021-01-12] MEDS ORDERED: MEPERIDINE 25 MG/ML VIAL IV PRN (08:43)
[2021-01-12] MEDS ORDERED: MEPERIDINE 50 MG/ML VIAL IM PRN (08:43)
[2021-01-12] MEDS ORDERED: PROMETHAZINE 25 MG/ML VIAL IM PRN (08:43)
[2021-01-12] MEDS ORDERED: LACTATED RINGERS 250 ML IV PRN (08:43)
[2021-01-12] MEDS ORDERED: LACTATED RINGERS 1,000 ML IV SCH (08:45)
[2021-01-12] MEDS ORDERED: SCOPOLAMINE 1 PATCH PATCH TOPICAL SCH ×2 (10:00)
--- NOTE | 2021-01-12 10:36 | Brief Operative Note ---
Brief Operative Note Date of procedure: 01/12/21 Pre-op diagnosis: inflammatory mass of abdominal wall; incisional hernia Post-op diagnosis: other (inflammatory mass of abdominal wall; incisional hernia;intra-abdominal adhesions) Procedure: excision of inflammatory mass of abdominal wall ( 5x7cm) repair of incisional hernia with vicryl mesh overlay Grafts/Implants: Yes (vicryl mesh overlay) Anesthesia: GETA Findings: dense inflammatory cystic mass with purulent contents and dense adhesion to fascia ,omentum and small bowel Complications: none Surgeon: Lisandra Smith Estimated blood loss (cc): 50 Specimens Removed/Pathology: other (inflammatory mass ) Condition: stable Disposition: PACU
[2021-01-12] MEDS: fentaNYL 100 MCG/2 ML VIAL IV PRN ×3 (10:47→11:08)
[2021-01-12] MEDS: 0.9 % SODIUM CHLORIDE 1,000 ML IV SCH ×2 (13:17→23:17)
[2021-01-12] MEDS: METOCLOPRAMIDE 10 MG/2 ML VIAL IV SCH ×2 (13:17→18:06)
[2021-01-12] MEDS: ACETAMINOPHEN 1,000 MG/100 ML BAG IV SCH ×2 (13:18→18:10)
[2021-01-12] MEDS: HYDROmorphone 1 MG/ML SYRINGE IV PRN (15:40)
[2021-01-12] MEDS: metroNIDAZOLE 500 MG/100 ML BAG IV SCH ×2 (16:05→20:09)
[2021-01-12] MEDS: PANTOPRAZOLE 40 MG VIAL IV SCH (18:06)
[2021-01-12] MEDS: CEFEPIME 1 GM VIAL IV SCH (21:21)
[2021-01-13] MEDS: METOCLOPRAMIDE 10 MG/2 ML VIAL IV SCH ×5 (00:09→23:36)
[2021-01-13] MEDS: ACETAMINOPHEN 1,000 MG/100 ML BAG IV SCH ×2 (00:09→05:56)
[2021-01-13] MEDS: 0.9 % SODIUM CHLORIDE 1,000 ML IV SCH ×4 (02:14→23:27)
[2021-01-13] MEDS: metroNIDAZOLE 500 MG/100 ML BAG IV SCH ×4 (02:15→20:52)
[2021-01-13 06:42] LABS: Basophils # (Auto) 0.01 K/mcL (0.00-0.30); Basophils % (Auto) 0.1 % (0.0-2.0); Eosinophils # (Auto) 0 K/mcL (0.00-0.70); Eosinophils % (Auto) 0 % (0.0-7.0); Hematocrit 26.8 % (34.1-44.9); Hemoglobin 8.7 g/dL (11.2-15.7); Lymphocytes # (Auto) 0.32 K/mcL (1.50-4.80); Lymphocytes % (Auto) 3.8 % (15.5-49.0); Mean Cell Volume 92.7 fL (80.0-100.0); Mean Corpuscular HGB Conc 32.5 g/dL (31.0-36.0); Mean Platelet Volume 11.3 fL (7.4-10.4); Monocytes # (Auto) 0.43 K/mcL (0.10-0.90); Monocytes % (Auto) 5.1 % (1.0-12.0); Platelet Count 111 K/mcL (140-440); RBC 2.89 M/mcL (3.59-5.38); Red Cell Distribution Width 13.2 % (11.5-14.5); WBC 8.4 K/mcL (4.5-11.0)
[2021-01-13 07:00] LABS: ALT/SGPT 100 U/L (<40); AST/SGOT 81 U/L (<32); Albumin 3.1 gm/dL (3.2-5.2); Albumin/Globulin Ratio 1.2 (1.0-2.3); Alkaline Phosphatase 108 U/L (39-117); Bilirubin,Direct < 0.2 mg/dL (0-0.3); Bilirubin,Total 0.3 mg/dL (0.1-1.0); Blood Urea Nitrogen 42 mg/dL (8-23); Calcium 7.8 mg/dL (8.6-10.4); Carbon Dioxide 17 mmol/L (22-30); Chloride 112 mmol/L (96-108); Globulin 2.5 gm/dL (2.2-3.7); Glomerular Filtration Rate 12; Glucose 124 mg/dL (70-105); Lactate Dehydrogenase 165 U/L (135-225); Triglycerides 68 mg/dL (<150); Uric Acid 9.2 mg/dL (2.5-8.0)
[2021-01-13] MEDS: PANTOPRAZOLE 40 MG VIAL IV SCH ×2 (08:36→18:01)
[2021-01-13] MEDS: CEFEPIME 1 GM VIAL IV SCH ×2 (09:45→20:52)
--- NOTE | 2021-01-13 15:30 | General Surgery Progress Note ---
SUBJECTIVE Subjective Patient information: Note initiated : 01/13/21 at 3:27 pm Service Date, if different from initiated Date: [] Patient: Kaylyn Rodriguez 80 y/o F admitted on 01/12/21 for Exploratory Laparotomy with Excision of. Chief Complaint: [] Principal diagnosis: Abdominal wall cystic abscess Interval history: Patient is clinically stable. Her pain is well controlled. She denies any nausea. She has not had flatus so far. White blood count 8.4, hemoglobin 8.7, hematocrit 26.8, BUN 42, creatinine 3.4. ALVARO drain with serosanguineous drainage Constitutional Vitals: Vital Signs Temp Pulse Resp BP Pulse Ox 98.4 F 83 16 126/66 97 01/13/21 12:00 01/13/21 12:00 01/13/21 12:00 01/13/21 12:00 01/13/21 12:00 Period Temp Pulse Resp BP Sys/Yee Pulse Ox Last 24 Hr 97.1 F-98.4 F 56-89 16-16 87-134/50-75 95-99 Intake and Output 01/13/21 01/13/21 01/13/21 05:59 13:59 21:59 Intake Total 230 1200 100 Output Total 315 38 Balance -85 1162 100 Weight 197 lb 14.4 oz Patient Weight 01/14/21 05:59 Weight 197 lb 14.4 oz Intake & Output: Intake & Output 01/13/21 01/13/21 01/13/21 05:59 13:59 21:59 Intake Total 230 1200 100 Output Total 315 38 Balance -85 1162 100 Weight 197 lb 14.4 oz Intake: IV 200 1200 100 Sodium Chloride 0.9% 1,000 ml @ 1000 150 mls/hr IV .Q6H40M [facility] Rx#: [id number] Oral 30 Output: Gastric Drainage 0 Right Nare 0 Drainage 40 ALVARO A 25 ALVARO B 15 Drainage 38 ALVARO A 20 ALVARO B 18 Urine Catheter Amount 275 Other: Urine Appearance Clear Uretheral (Arevalo) Clear Urine Color Light Maggie Uretheral (Arevalo) Straw ENT ENT exam: Present mucous membranes moist, normal exam and normal oropharynx Neck Neck exam: Present full ROM; Absent tenderness Respiratory Respiratory exam: Present normal respiratory exam and CTAB; Absent rales, rhonchi and wheezes Cardiovascular Cardiovascular exam: Present normal rate and rhythm, RRR, +S1 and +S2; Absent gallop and JVD GI/Abdominal GI/Abdominal exam: Present normal bowel sounds (good active bowel sounds) and soft (abdomen is much softer with no tenderness); Absent distended and mass Extremities Exam Extremities exam: Present full ROM and normal inspection; Absent pedal edema Neurological Exam Neurological exam: Present alert and oriented X3; Absent motor sensory deficit Psychiatric Psychiatric exam: Present normal mood; Absent anxious and depressed A/P Assessment and plan (1) Abdominal wall mass of periumbilical region: Status: Acute (2) Small bowel obstruction due to postoperative adhesions: Status: Acute (3) Recurrent incisional hernia with complication: Status: Acute Narrative A/P Narrative: Continue present antibiotic therapy Monitor for return of bowel sounds Time Spent With Patient Time: Total time spent is greater than 50% in coordination of care (as documented) at patient's floor/unit and/or counseling patient:
[2021-01-13] MEDS: HYDROmorphone 1 MG/ML SYRINGE IV PRN ×2 (18:27→23:39)
[2021-01-14] MEDS: metroNIDAZOLE 500 MG/100 ML BAG IV SCH ×4 (01:54→21:15)
[2021-01-14] MEDS: 0.9 % SODIUM CHLORIDE 1,000 ML IV SCH ×2 (05:40→07:06)
[2021-01-14] MEDS: METOCLOPRAMIDE 10 MG/2 ML VIAL IV SCH ×2 (05:40→11:13)
[2021-01-14] MEDS: HYDROmorphone 1 MG/ML SYRINGE IV PRN ×5 (05:40→23:36)
[2021-01-14 06:57] LABS: Basophils # (Auto) 0.02 K/mcL (0.00-0.30); Basophils % (Auto) 0.2 % (0.0-2.0); Eosinophils # (Auto) 0.04 K/mcL (0.00-0.70); Eosinophils % (Auto) 0.5 % (0.0-7.0); Hematocrit 28.8 % (34.1-44.9); Hemoglobin 8.6 g/dL (11.2-15.7); Lymphocytes # (Auto) 0.53 K/mcL (1.50-4.80); Lymphocytes % (Auto) 6.5 % (15.5-49.0); Mean Cell Volume 99.7 fL (80.0-100.0); Mean Corpuscular HGB Conc 29.9 g/dL (31.0-36.0); Mean Platelet Volume 10.8 fL (7.4-10.4); Monocytes # (Auto) 0.36 K/mcL (0.10-0.90); Monocytes % (Auto) 4.4 % (1.0-12.0); Neutrophils % (Auto) 88.4 % (38.0-78.0); Platelet Count 102 K/mcL (140-440); RBC 2.89 M/mcL (3.59-5.38); Red Cell Distribution Width 13.7 % (11.5-14.5); WBC 8.1 K/mcL (4.5-11.0)
[2021-01-14 07:12] LABS: ALT/SGPT 60 U/L (<40); AST/SGOT 29 U/L (<32); Albumin 2.7 gm/dL (3.2-5.2); Albumin/Globulin Ratio 0.9 (1.0-2.3); Alkaline Phosphatase 95 U/L (39-117); Bilirubin,Direct < 0.2 mg/dL (0-0.3); Bilirubin,Total 0.3 mg/dL (0.1-1.0); Blood Urea Nitrogen 39 mg/dL (8-23); Calcium 7.8 mg/dL (8.6-10.4); Carbon Dioxide 14 mmol/L (22-30); Chloride 116 mmol/L (96-108); Glomerular Filtration Rate 13; Glucose 80 mg/dL (70-105); Lactate Dehydrogenase 159 U/L (135-225); Triglycerides 90 mg/dL (<150); Uric Acid 8.8 mg/dL (2.5-8.0)
[2021-01-14] MEDS: PANTOPRAZOLE 40 MG VIAL IV SCH (07:13)
[2021-01-14] MEDS: CEFEPIME 1 GM VIAL IV SCH ×2 (08:57→21:39)
--- NOTE | 2021-01-14 09:52 | General Surgery Progress Note ---
SUBJECTIVE Subjective Patient information: Note initiated : 01/14/21 at 9:48 am Service Date, if different from initiated Date: [] Patient: Kaylyn Rodriguez 80 y/o F admitted on 01/12/21 for Exploratory Laparotomy with Excision of. Chief Complaint: [POD #2] Sitting up comfortably in a chair. Pain control is currently good. No flatus yet. NGT in place Principal diagnosis: Abdominal wall cystic abscess Constitutional Vitals: Vital Signs Temp Pulse Resp BP Pulse Ox 97.6 F 86 22 163/99 93 01/14/21 08:52 01/14/21 08:52 01/14/21 08:52 01/14/21 08:52 01/14/21 08:00 Period Temp Pulse Resp BP Sys/Yee Pulse Ox Last 24 Hr 97.4 F-98.5 F 81-89 16-22 98-163/52-99 80-97 Intake and Output 01/13/21 01/14/21 01/14/21 21:59 05:59 13:59 Intake Total 1414 317 5430 Output Total 365 700 16 Balance 735 -600 1084 Weight 204 lb 8 oz Intake & Output: Intake & Output 01/13/21 01/14/21 01/14/21 21:59 05:59 13:59 Intake Total 9611 448 6891 Output Total 365 700 16 Balance 735 -600 1084 Weight 204 lb 8 oz Intake: IV 0298 536 8254 Sodium Chloride 0.9% 1,000 ml @ 1000 0 1000 150 mls/hr IV .Q6H40M [facility] Rx#: [id number] Oral 0 Output: Gastric Drainage 225 Right Nare 225 Drainage 50 16 ALVARO A 25 12 ALVARO B 25 4 Drainage 15 ALVARO A 10 ALVARO B 5 Urine Catheter Amount 350 425 Other: Urine Appearance Cloudy Clear Clear Uretheral (Arevalo) Clear Clear Urine Color Bright Yellow Dark Yellow Bright Yellow Uretheral (Arevalo) Dark Yellow Dark Yellow General appearance: no acute distress Head Head exam: Present atraumatic and normocephalic Respiratory Respiratory exam: Absent respiratory distress Additional comments: no distress with normal inspirations Cardiovascular Cardiovascular exam: Present RRR GI/Abdominal Additional comments: dressings in place, drains appear benign, NGT functional and without issue, belly is soft and obese, non distended A/P Narrative A/P Narrative: POD #2 Doing Well Increase activity as able Await bowel function No mgmt changes at this time Time Spent With Patient Time: Total time spent is greater than 50% in coordination of care (as documented) at patient's floor/unit and/or counseling patient:
[2021-01-14] MEDS ORDERED: 0.9 % SODIUM CHLORIDE 1,000 ML IV SCH (11:15)
[2021-01-14] MEDS ORDERED: FUROSEMIDE 20 MG/2 ML VIAL IV ONE (15:44)
[2021-01-14] MEDS ORDERED: METOPROLOL TARTRATE 5 MG/5 ML VIAL IV ONE (15:46)
[2021-01-14] MEDS ORDERED: ASPIRIN 81 MG TAB.CHEW CHEWED ONE (15:52)
--- NOTE | 2021-01-14 15:54 | General Surgery Progress Note ---
SUBJECTIVE Subjective Patient information: Note initiated : 01/14/21 at 3:48 pm Service Date, if different from initiated Date: [] Patient: Kaylyn Rodriguez 80 y/o F admitted on 01/12/21 for Exploratory Laparotomy with Excision of. Chief Complaint: [] ADDENDUM: called regarding patient development of Chest Pain. EKG ordered demonstrating possible ST Seg depression and ischemic changes; also concerns about NGT function Patient seen at bedside along with Dr Falk [facility] Principal diagnosis: Abdominal wall cystic abscess Constitutional Vitals: Vital Signs Temp Pulse Resp BP Pulse Ox 97.4 F 99 H 24 H 107/70 94 01/14/21 11:10 01/14/21 14:52 01/14/21 14:52 01/14/21 14:52 01/14/21 11:10 Period Temp Pulse Resp BP Sys/Yee Pulse Ox Last 24 Hr 97.4 F-98.5 F 81-99 16-24 98-163/52-99 80-96 Intake and Output 01/14/21 01/14/21 01/14/21 05:59 13:59 21:59 Intake Total 100 1200 100 Output Total 700 26 Balance -600 1174 100 Intake & Output: Intake & Output 01/14/21 01/14/21 01/14/21 05:59 13:59 21:59 Intake Total 100 1200 100 Output Total 700 26 Balance -600 1174 100 Intake: IV 100 1200 100 Sodium Chloride 0.9% 1,000 ml @ 0 1000 150 mls/hr IV .Q6H40M [facility] Rx#: [id number] Oral 0 Output: Gastric Drainage 225 Right Nare 225 Drainage 50 16 ALVARO A 25 12 ALVARO B 25 4 Urine Catheter Amount 425 Emesis 10 Other: Urine Appearance Clear Clear Uretheral (Arevalo) Clear Urine Color Dark Yellow Bright Yellow Uretheral (Arevalo) Bright Yellow Exam: she is fully alert and conversant but does relate ongoing chest pain - denies much in the way of new or active abdominal pain Respiratory Additional comments: no obvious distress Cardiovascular Cardiovascular exam: Present RRR GI/Abdominal Additional comments: NGT troubleshoot at bedside - flushed and both main and air ports interrogated and found to be functional and working well - placed back to LIWS Belly seems unchanged from AM exam of obese, mild soft distension, drains appear benign A/P Narrative A/P Narrative: New Interval Development of Chest Pain with concern for Cardiac Ischemia Case discussed with Hospitalist and appreciate their prompt attention and evaluation OK for Systemic Heparin from a standpoint of recent surgery - risk of bleed relatively low at 48 hours post procedure. Agree with Troponins, potential ECHO with ICU or other transfer as needed and defer to Medicine for mgmt of current cardiac issue and decision making in that regard Time Spent With Patient Time: Total time spent is greater than 50% in coordination of care (as documented) at patient's floor/unit and/or counseling patient:
[2021-01-14] MEDS ORDERED: HEPARIN SOD,PORK IN 0.45% NACL 25,000 UNIT in PREMIX 1 BAG IV SCH ×2 (16:00→18:34)
[2021-01-14] MEDS ORDERED: ACETAMINOPHEN 650 MG/65 ML BAG IV ONE (16:04)
[2021-01-14] MEDS ORDERED: ACETAMINOPHEN 650 MG/65 ML BAG IV PRN ×2 (16:07→18:34)
--- NOTE | 2021-01-14 16:41 | Internal Medicine Consult Note ---
HPI Data of Consult Consult date: 01/14/21 Primary Care Provider: Gaby Bradford Consult Narrative cc:: CC: Lisandra Smith MD Cardiovascular Cardiovascular: Present chest pain and dyspnea Respiratory Respiratory: Present dyspnea Gastrointestinal Gastrointestinal: Present abdominal pain and nausea Genitourinary Genitourinary: Present other Additional comments: urinary retention and chronic indwelling juarez. known left nephrectomy for cancer. Hx of pyelonephritis and chronic hydronephrosis right side. Menstruation: post hysterectomy PFSH PFSH All Active Problems (Updated 01/14/21 @ 17:03 by Ben Falk MD) Ischemic heart disease, acute (Acute) Volume overload state of heart (Acute) CKD (chronic kidney disease) stage 5, GFR less than 15 ml/min (Acute) Chest pain at rest (Acute) Abdominal wall mass of periumbilical region (Acute) Chronic urinary tract infection (Acute) Infected urachal cyst (Acute) Small bowel obstruction due to postoperative adhesions (Acute) Recurrent incisional hernia with complication (Acute) Emesis (Chronic) Nephrolithiasis (Chronic) Ileus (Chronic) Loss of appetite (Chronic) Diarrhea (Chronic) Nausea & vomiting (Chronic) Endometrial carcinoma (Chronic) Hydroureter on right (Chronic) Pyelonephritis (Chronic) Metabolic acidosis (Chronic) SBO (small bowel obstruction) (Chronic) Urine retention (Chronic) Flank pain (Chronic) Partial obstruction of small intestine (Chronic) Chronic renal failure, stage 3 (moderate) (Chronic) UTI (urinary tract infection) (Chronic) CKD (chronic kidney disease) (Chronic) Hypertension (Chronic) Renal cell carcinoma (Chronic) Bladder outlet obstruction (Chronic ~10/2017) Juarez catheter in place (Chronic ~10/2017) Edema (Chronic) Hydronephrosis due to obstruction of bladder (Chronic) Nocturia (Chronic) Overactive bladder (Chronic) Kidney disease, chronic, stage III (GFR 30-59 ml/min) (Chronic) Neurogenic bladder (Chronic) Left kidney mass (Chronic) Splenomegaly (Chronic) Cough (Chronic) Anemia (Chronic) Vitamin D deficiency (Chronic) Renal osteodystrophy (Chronic) Hyperlipidemia (Chronic) Urinary system disease (Chronic) Abdominal pain (Chronic) Impacted cerumen, bilateral (Chronic) Encounter for screening mammogram for malignant neoplasm of breast (Chronic) Vitamin B deficiency (Chronic) Encounter for screening for malignant neoplasm of colon (Chronic) Malignant neoplasm of unspecified kidney, except renal pelvis (Chronic) Ventral hernia without obstruction or gangrene (Chronic) Umbilical hernia without obstruction or gangrene (Chronic) Osteoarthritis of hip (Chronic) Disorder of bone density and structure, unspecified (Chronic) Hyperglyceridemia, pure (Chronic) Paresthesia of skin (Chronic) Low back pain (Chronic) Abnormal glucose (Chronic) Morbidly obese (Chronic) Fatty liver (Chronic) Pain in left knee (Chronic) Generalized enlarged lymph nodes (Chronic) Other primary thrombocytopenia (Chronic) Other fatigue (Chronic) Malignant neoplasm of endometrium (Chronic) Adenocarcinoma (Chronic) Dysuria (Chronic) Osteopenia (Chronic) Acute kidney injury (Chronic) Fatigue (Chronic) Hydronephrosis (Chronic) Chest tightness (Chronic) Cellulitis of eyelid (Chronic) Weight loss (Chronic) Dry mouth (Chronic) Temperature intolerance (Chronic) Paresthesia of lower extremity (Chronic) Cyst (Chronic) History of radiation therapy (Chronic) Renal mass (Chronic) Medical History (Updated 01/14/21 @ 17:03 by Ben Falk MD) Abdominal pain Abnormal glucose Acute kidney injury Adenocarcinoma Anemia Bladder outlet obstruction (~10/2017) Cellulitis of eyelid Chest tightness Chronic renal failure, stage 3 (moderate) CKD (chronic kidney disease) stage 5, GFR less than 15 ml/min diurese avoid potassium and nsaids Cough Cyst Diarrhea Disorder of bone density and structure, unspecified Dry mouth Dysuria Edema Emesis Endometrial carcinoma Fatigue Fatty liver Flank pain Juarez catheter in place (~10/2017) Generalized enlarged lymph nodes History of mammogram (12/20/08) History of radiation therapy Hydronephrosis due to obstruction of bladder Hydroureter on right Hyperglyceridemia, pure Hyperlipidemia Hypertension Ileus Impacted cerumen, bilateral Kidney disease, chronic, stage III (GFR 30-59 ml/min) Left kidney mass Loss of appetite Low back pain Malignant neoplasm of endometrium Malignant neoplasm of unspecified kidney, except renal pelvis Metabolic acidosis Morbidly obese Nausea & vomiting Nephrolithiasis Neurogenic bladder Nocturia Osteoarthritis of hip Osteopenia Other primary thrombocytopenia Overactive bladder Pain in left knee Paresthesia of lower extremity Paresthesia of skin Partial obstruction of small intestine Pyelonephritis Renal cell carcinoma Renal mass Renal osteodystrophy SBO (small bowel obstruction) Splenomegaly Temperature intolerance Umbilical hernia without obstruction or gangrene Urinary system disease Urine retention UTI (urinary tract infection) Ventral hernia without obstruction or gangrene Vitamin B deficiency Vitamin D deficiency Weight loss Surgical History H/O kidney removal H/O: hysterectomy History of appendectomy History of bowel resection History of carpal tunnel release History of cholecystectomy History of knee surgery Bilateral History of left nephrectomy History of oophorectomy History of partial gastrectomy Family History Sister FHx: kidney cancer x2 sisters. Melanoma Renal cell carcinoma Daughter Melanoma Mother , 75 Bruising Bleeding Blood clotting tendency Stroke Diabetes Father , 75 Heart disease Myocardial infarction CAD (coronary artery disease) Sister , 49 Encephalitis Family/Other Renal cell carcinoma All 3 Siblings Brother FHx: kidney cancer Renal cell carcinoma Other Malignant neoplasm Social History marital status: occupational status: retired occupation: [employer] 1 other: Children-2 smoking status: Former smoker and Never smoker alcohol intake frequency: 0-2 drinks per day substance use type: does not use MEDS/ALLERGIES Home Medications and Allergies Home Medications Medication Instructions Recorded Confirmed Type cholecalciferol (vitamin D3) 5,000 unit PO DAILY 07/14/19 01/12/21 History cyanocobalamin (vitamin B-12) 1,000 mcg IJ MONTHLY 07/14/19 01/12/21 History hydrochlorothiazide 25 mg tablet 25 mg PO QDAY 05/18/20 01/12/21 History cephalexin 250 mg PO QDAY 01/08/21 01/12/21 History Allergies Allergy/AdvReac Type Severity Reaction Status Date / Time cefuroxime Allergy Intermediate Diarrhea Verified 01/08/21 14:15 monosodium glutamate AdvReac Mild Sneezing Verified 01/08/21 14:15 morphine AdvReac Mild Nausea Verified 01/08/21 14:15 sulfates found in food AdvReac Mild Sneezing Uncoded 12/28/20 14:26 EXAM Constitutional Vitals: Temp Pulse Resp BP Pulse Ox 97.4 F 99 H 24 H 107/70 94 01/14/21 11:10 01/14/21 14:52 01/14/21 14:52 01/14/21 14:52 01/14/21 11:10 Additional findings Additional findings: GEN WDWN obese WF in NAD CV RRR no murmur or rub. distant heart sounds Lungs Crackles both bases ABd decreased or absent bowel tones Calves no edema neck no JVD Skin mild moist, warm Mentation drowsy but oriented DATA Data Completed and Pending Labs: Labs from last 24 hours 01/14/21 01/14/21 01/14/21 16:00 16:00 16:00 WBC RBC Hgb Hct MCV MCH MCHC RDW Plt Count MPV Neut % (Auto) Lymph % (Auto) Barron % (Auto) Eos % (Auto) Baso % (Auto) Lymph # (Auto) Barron # (Auto) Eos # (Auto) Baso # (Auto) Absolute Neutrophils Sodium Pending Potassium Pending Chloride Pending Carbon Dioxide Pending Anion Gap Pending BUN Pending Creatinine Pending GFR Calculation Pending Glucose Pending Uric Acid Calcium Pending Phosphorus Magnesium Pending Total Bilirubin Pending Direct Bilirubin GGT AST Pending ALT Pending Alkaline Phosphatase Pending Lactate Dehydrogenase Troponin T Pending Total Protein Pending Albumin Pending Globulin Pending Albumin/Globulin Ratio Pending Triglycerides 01/14/21 01/14/21 01/14/21 16:00 05:50 05:50 WBC Pending 8.1 RBC Pending 2.89 L Hgb Pending 8.6 L Hct Pending 28.8 L MCV Pending 99.7 MCH Pending 29.8 MCHC Pending 29.9 L RDW Pending 13.7 Plt Count Pending 102 L MPV Pending 10.8 H Neut % (Auto) Pending 88.4 H Lymph % (Auto) 6.5 L Barron % (Auto) 4.4 Eos % (Auto) 0.5 Baso % (Auto) 0.2 Lymph # (Auto) 0.53 L Barron # (Auto) 0.36 Eos # (Auto) 0.04 Baso # (Auto) 0.02 Absolute Neutrophils 7.15 Sodium 144 Potassium 4.7 Chloride 116 H Carbon Dioxide 14 L Anion Gap 14.0 BUN 39 H Creatinine 3.1 H GFR Calculation 13 Glucose 80 Uric Acid 8.8 H Calcium 7.8 L Phosphorus 5.0 H Magnesium 2.1 Total Bilirubin 0.3 Direct Bilirubin < 0.2 GGT 31 AST 29 ALT 60 H Alkaline Phosphatase 95 Lactate Dehydrogenase 159 Troponin T Total Protein 5.7 L Albumin 2.7 L Globulin 3.0 Albumin/Globulin Ratio 0.9 L Triglycerides 90 Preliminary micro results at discharge 10/29/21 08:45 Wound Culture - Preliminary Abdomen - Middle 01/12/21 08:53 Wound Culture - Preliminary Abdominal Fluid 01/12/21 08:54 Wound Culture - Preliminary Misc A/P Assessment and plan (1) Chest pain at rest: Status: Acute Comment: Pt with acute volume overload based on CXR changes from preop. Marked pulm vascular congestion. Also has ischemic changes but not acute NC by EKG. troponin and repeat labs pending diurese with 80 mg furosemide, start ASA daily. heparin drip repeat EKG. (2) CKD (chronic kidney disease) stage 5, GFR less than 15 ml/min: Status: Acute Comment: diurese avoid potassium and nsaids (3) Volume overload state of heart: Status: Acute Comment: pulmonary edema by CXR (4) Ischemic heart disease, acute: Status: Acute Comment: as above. Echo in morning. may need cardiac stress test or catheterization based on Troponin and echo findings. Time Spent With Patient Time: Total time spent is greater than 50% in coordination of care (as documented) at patient's floor/unit and/or counseling patient: Total time spent with greater than 50% in coordination of care (as documented) at patient's floor/unit and/or counseling patient:: Greater than 35 minutes
[2021-01-14] MEDS ORDERED: FUROSEMIDE 100 MG/10 ML VIAL IV ONE (16:44)
[2021-01-14 16:57] LABS: Basophils # (Auto) 0.08 K/mcL (0.00-0.30); Basophils % (Auto) 0.5 % (0.0-2.0); Eosinophils # (Auto) 0.12 K/mcL (0.00-0.70); Eosinophils % (Auto) 0.7 % (0.0-7.0); Hematocrit 33.7 % (34.1-44.9); Lymphocytes # (Auto) 1.09 K/mcL (1.50-4.80); Lymphocytes % (Auto) 6.5 % (15.5-49.0); Mean Cell Volume 101.2 fL (80.0-100.0); Mean Corpuscular HGB Conc 29.7 g/dL (31.0-36.0); Mean Platelet Volume 11.3 fL (7.4-10.4); Monocytes # (Auto) 0.56 K/mcL (0.10-0.90); Monocytes % (Auto) 3.3 % (1.0-12.0); Platelet Count 191 K/mcL (140-440); RBC 3.33 M/mcL (3.59-5.38); Red Cell Distribution Width 14.1 % (11.5-14.5); WBC 16.7 K/mcL (4.5-11.0)
[2021-01-14 17:22] LABS: ALT/SGPT 56 U/L (<40); AST/SGOT 27 U/L (<32); Albumin 3.1 gm/dL (3.2-5.2); Albumin/Globulin Ratio 0.9 (1.0-2.3); Alkaline Phosphatase 106 U/L (39-117); Bilirubin,Total 0.3 mg/dL (0.1-1.0); Blood Urea Nitrogen 44 mg/dL (8-23); Calcium 8.4 mg/dL (8.6-10.4); Carbon Dioxide 10 mmol/L (22-30); Chloride 112 mmol/L (96-108); Globulin 3.3 gm/dL (2.2-3.7); Glomerular Filtration Rate 12; Glucose 102 mg/dL (70-105)
[2021-01-14] MEDS ORDERED: FUROSEMIDE 40 MG/4 ML VIAL IV ONE (17:25)
[2021-01-14] MEDS ORDERED: SODIUM BICARBONATE 50 MEQ/50 ML VIAL IV ONE ×2 (17:41→18:34)
--- NOTE | 2021-01-14 20:05 | XRay Report ---
HISTORY: Redness of breath and chest pain, two days postop excision of inflammatory mass in the anterior abdominal wall hernia repair FINDINGS: There are severe alveolar opacities throughout both lungs. There are a few curly B lines. Size is borderline enlarged but magnified. NG tube passes through the esophagus into the stomach. Comparison with the preoperative chest x-ray done on 01/08/21 shows these are all new findings. IMPRESSION: Congestive heart failure with pulmonary edema. ARDS is also a possibility. Interpreted and Authenticated by: Leonidas Veronica 01/14/21
[2021-01-14] MEDS ORDERED: SODIUM BICARBONATE 650 MG TABLET PO SCH (21:00)
--- NOTE | 2021-01-14 21:04 | General Surgery Procedure Note ---
Date of procedure: Note initiated : 01/14/21 at 9:02 pm Service Date, if different from initiated Date: [] Pre-op diagnosis: CONGESTIVE HEART FAILURE Post-op diagnosis: other (CONGESTIVE HEART FAILURE) Procedure: LEFT SUBCLAVIAN CENTRAL VENOUS CATHETER PLACEMENT Anesthesia: local (1% LIDOCAINE ) Surgeon: Lisandra Smith Pathology: none sent Condition: stable Disposition: ICU
[2021-01-14] MEDS: 0.9 % SODIUM CHLORIDE 10 ML SYRINGE IV SCH (21:20)
[2021-01-14] MEDS: 0.9 % SODIUM CHLORIDE 10 ML SYRINGE IV PRN (21:39)
[2021-01-14] MEDS ORDERED: METOLAZONE 2.5 MG TABLET PO ONE (22:00)
[2021-01-14] MEDS ORDERED: BUMETANIDE 1 MG/4 ML VIAL IV ONE (22:00)
[2021-01-14] MEDS ORDERED: METOLAZONE 2.5 MG TABLET ONE (22:17)
[2021-01-14] MEDS: SODIUM BICARBONATE 650 MG TABLET PO SCH (22:29)
[2021-01-14] MEDS ORDERED: diphenhydrAMINE 25 MG CAPSULE PO PRN (22:31)
[2021-01-15] MEDS ORDERED: METOCLOPRAMIDE 10 MG/2 ML VIAL IV SCH
[2021-01-15] MEDS ORDERED: NOREPINEPHRINE BITARTRATE 4 MG/4 ML VIAL IV ONE (00:06)
[2021-01-15] MEDS ORDERED: HYDROCORTISONE SOD SUCC 100 MG VIAL ONE (00:12)
[2021-01-15] MEDS ORDERED: NOREPINEPHRINE BITARTRATE 16 MG in 0.9 % SODIUM CHLORIDE 234 ML IV SCH (00:15)
[2021-01-15] MEDS ORDERED: 0.9 % SODIUM CHLORIDE 250 ML IV SCH (00:15)
[2021-01-15] MEDS ORDERED: METOCLOPRAMIDE 10 MG/2 ML VIAL ONE (00:16)
[2021-01-15] MEDS: HYDROCORTISONE SOD SUCC 100 MG VIAL IV SCH ×2 (00:21→06:45)
[2021-01-15] MEDS: METOCLOPRAMIDE 10 MG/2 ML VIAL IV SCH ×4 (00:49→09:21)
[2021-01-15] MEDS: 0.9 % SODIUM CHLORIDE 10 ML SYRINGE IV PRN ×3 (00:50→05:10)
[2021-01-15] MEDS: metroNIDAZOLE 500 MG/100 ML BAG IV SCH ×2 (00:52→06:42)
--- NOTE | 2021-01-15 05:53 | XRay Report ---
INDICATION: central line placement verification TECHNIQUE: AP supine chest x-ray COMPARISON: Previous examinations dated 01/14/2021, 01/08/2021, 03/25/2020 FINDINGS: Esophagogastric tube in the stomach. Left central venous catheter with its tip in the superior vena cava. No pneumothorax identified on this AP, supine radiograph Lungs:Diffuse pulmonary parenchymal infiltrates with dense consolidation in the right upper lobe. Infiltrates are worse than on previous examination. Etiology is not certain. Findings could be due to infection. There is intralobular septal thickening and appearance may be due to pulmonary edema. Pulmonary hemorrhage and ARDS are possible. Heart, vascular:No definite pulmonary edema. Pulmonary vessels are not significantly distended Mediastinum, cirilo:No mediastinal widening. No hilar mass Pleura:No pleural effusion is not identified on this supine radiograph Skeletal:Negative. IMPRESSION: 1. Status post left central venous catheter placement. Catheter tip is in the superior vena cava. No pneumothorax identified on this supine radiograph 2. Diffuse pulmonary parenchymal infiltrates are worse than on 01/14/2021, especially in the right upper lobe. Differential diagnosis includes infection, edema, ARDS, pulmonary hemorrhage Interpreted and Authenticated by: Ryan Bhakta 01/15/21
[2021-01-15] MEDS ORDERED: DOBUTamine 250 ML IV ONE (05:56)
[2021-01-15] MEDS ORDERED: DOBUTamine 250 MG in PREMIX 1 BAG IV SCH ×2 (06:00→06:39)
[2021-01-15 06:12] LABS: Basophils # (Auto) 0.03 K/mcL (0.00-0.30); Basophils % (Auto) 0.1 % (0.0-2.0); Eosinophils # (Auto) 0 K/mcL (0.00-0.70); Eosinophils % (Auto) 0 % (0.0-7.0); Hematocrit 33.3 % (34.1-44.9); Hemoglobin 10.2 g/dL (11.2-15.7); Lymphocytes % (Auto) 2.7 % (15.5-49.0); Mean Cell Volume 100.3 fL (80.0-100.0); Mean Corpuscular HGB Conc 30.6 g/dL (31.0-36.0); Monocytes # (Auto) 0.74 K/mcL (0.10-0.90); Monocytes % (Auto) 3.3 % (1.0-12.0); Neutrophils % (Auto) 93.9 % (38.0-78.0); Platelet Count 259 K/mcL (140-440); RBC 3.32 M/mcL (3.59-5.38); Red Cell Distribution Width 14.2 % (11.5-14.5); WBC 22.5 K/mcL (4.5-11.0)
[2021-01-15] MEDS ORDERED: SODIUM BICARBONATE 50 MEQ/50 ML VIAL IV ONE (06:39)
[2021-01-15 06:44] LABS: ALT/SGPT 57 U/L (<40); AST/SGOT 128 U/L (<32); Albumin 2.9 gm/dL (3.2-5.2); Albumin/Globulin Ratio 0.9 (1.0-2.3); Alkaline Phosphatase 107 U/L (39-117); Bilirubin,Direct < 0.2 mg/dL (0-0.3); Bilirubin,Total 0.3 mg/dL (0.1-1.0); Blood Urea Nitrogen 57 mg/dL (8-23); Calcium 8.6 mg/dL (8.6-10.4); Carbon Dioxide 10 mmol/L (22-30); Chloride 110 mmol/L (96-108); Globulin 3.3 gm/dL (2.2-3.7); Glomerular Filtration Rate 9; Glucose 121 mg/dL (70-105); Lactate Dehydrogenase 461 U/L (135-225); Phosphorous 8.6 mg/dL (2.5-4.5); Triglycerides 104 mg/dL (<150)
--- NOTE | 2021-01-15 06:48 | Internal Med Progress Note ---
SUBJECTIVE Subjective Patient information: Note initiated : 01/15/21 at 6:41 am Service Date, if different from initiated Date: [] Patient: Kaylyn Rodriguez 80 y/o F admitted on 01/12/21 for Exploratory Laparotomy with Excision of. Chief Complaint: [difficulty breathing and chest pain] pt is very sob, EKG shows diffuse st seg depression consistent with ischemia and there is modest elevation of troponin consistent with infarcting myocardium in setting of severe CHF with metabolic acidosis due to ESRD and failure to respond to diuretics. placed a left subclavian TLC and the pt has had 100mg furosemide with 75cc urine output then zaroxolyn 5mg oral and bumex 2mg IV with only 50 cc urine output. Pt previously full code but on discussion regarding transfer she is saying she does not desire transport or aggressive care. I spoke with daughter Eusebia who called from [facility] but is sick with Covid. I spoke with who says his opinion is that the patient should proceed with dialysis. He is going to discuss with Louise the daughter and primary contact as well as patient. Echocardiogram will be emergently done at 0700. Principal diagnosis: Abdominal wall cystic abscess Constitutional Vitals: Vital Signs Temp Pulse Resp BP Pulse Ox 97.8 F 117 H 29 H 66/51 96 01/15/21 04:03 01/15/21 06:36 01/15/21 06:36 01/15/21 06:35 01/15/21 06:36 Period Temp Pulse Resp BP Sys/Yee Pulse Ox Last 24 Hr 97.4 F-98.1 F 79-118 16-32 51-163/36-99 87-98 Intake and Output 01/14/21 01/15/21 01/15/21 21:59 05:59 13:59 Intake Total 1200 294 1 Output Total 975 225 Balance 225 69 1 Weight 92.805 kg GEN WDWN obese WM in mod severe cardiopulmonary distress on bipap CV RRR but distant Lungs crackles bilat no wheezing ABd soft decreased bowel tones. calves 1+ edema EKG shows NSR with anterolateral ischemia on RV leads it shows q waves anterolateral possible old RV infarct. Intake & Output: Intake & Output 01/14/21 01/15/21 01/15/21 21:59 05:59 13:59 Intake Total 1200 294 1 Output Total 975 225 Balance 225 69 1 Weight 92.805 kg Intake: IV 1100 294 1 Sodium Chloride 0.9% 1,000 ml @ 1000 150 mls/hr IV .[id number] [facility] Rx#: [id number] Dobutrex 250 mg In Premix 1 Bag 1 @ 0.5 MCG/KG/MIN 2.784 mls/hr IV .Q24H [facility] Rx#:[id number] Levophed 16 mg In Sodium 29 Chloride 0.9% 234 ml @ 3 MCG/ MIN 2.813 mls/hr IV Q24H [facility] Rx #:[id number] IV - Manual Only 100 Output: Gastric Drainage 550 100 Right Nare 550 100 Drainage 75 ALVARO A 40 ALVARO B 35 Urine Catheter Amount 425 50 Other: Urine Appearance Clear Cloudy Urine Color Bright Yellow Bright Yellow Urine Odor Normal OBJ DATA Labs CBC & Chem 7: 01/15/21 05:28 01/15/21 05:28 Labs: Abnormal Lab Results 01/15/21 01/14/21 01/14/21 05:28 23:32 23:32 WBC 22.5 H RBC 3.32 L Hgb 10.2 L Hct 33.3 L MCV 100.3 H MCHC 30.6 L Plt Count MPV 11.0 H Neut % (Auto) 93.9 H Lymph % (Auto) 2.7 L Lymph # (Auto) 0.60 L Absolute Neutrophils 21.08 H APTT 82.9 H Chloride Carbon Dioxide Anion Gap BUN Creatinine Glucose Uric Acid Calcium Phosphorus GGT AST ALT Troponin T 0.76 H* Total Protein Albumin Albumin/Globulin Ratio 01/14/21 01/14/21 01/14/21 21:54 16:00 16:00 WBC RBC Hgb Hct MCV MCHC Plt Count MPV Neut % (Auto) Lymph % (Auto) Lymph # (Auto) Absolute Neutrophils APTT Chloride 112 H Carbon Dioxide 10 L* Anion Gap 20.0 H BUN 44 H Creatinine 3.5 H Glucose Uric Acid Calcium 8.4 L Phosphorus GGT AST ALT 56 H Troponin T 0.49 H* 0.08 H* Total Protein Albumin 3.1 L Albumin/Globulin Ratio 0.9 L 01/14/21 01/14/21 01/14/21 16:00 05:50 05:50 WBC 16.7 H RBC 3.33 L 2.89 L Hgb 10.0 L 8.6 L Hct 33.7 L 28.8 L MCV 101.2 H MCHC 29.7 L 29.9 L Plt Count 102 L MPV 11.3 H 10.8 H Neut % (Auto) 89.0 H 88.4 H Lymph % (Auto) 6.5 L 6.5 L Lymph # (Auto) 1.09 L 0.53 L Absolute Neutrophils 14.89 H APTT Chloride 116 H Carbon Dioxide 14 L Anion Gap BUN 39 H Creatinine 3.1 H Glucose Uric Acid 8.8 H Calcium 7.8 L Phosphorus 5.0 H GGT AST ALT 60 H Troponin T Total Protein 5.7 L Albumin 2.7 L Albumin/Globulin Ratio 0.9 L 01/13/21 01/13/21 05:09 05:09 WBC RBC 2.89 L Hgb 8.7 L Hct 26.8 L MCV MCHC Plt Count 111 L MPV 11.3 H Neut % (Auto) 91.0 H Lymph % (Auto) 3.8 L Lymph # (Auto) 0.32 L Absolute Neutrophils APTT Chloride 112 H Carbon Dioxide 17 L Anion Gap BUN 42 H Creatinine 3.4 H Glucose 124 H Uric Acid 9.2 H Calcium 7.8 L Phosphorus 5.0 H GGT 41 H AST 81 H ALT 100 H Troponin T Total Protein 5.6 L Albumin 3.1 L Albumin/Globulin Ratio Xray shows pulmonary edema. Left subclavian in good position Meds: Medications Cefepime HCl (Cefepime 1 Gm Vial) 1 gm IV Q12H [facility]; Protocol Last Admin: 01/14/21 21:39 Dose: 1 gm Documented by: Hydrocortisone Sodium Succinate (Hydrocortisone Sod Succ 100 Mg Vial) 50 mg IV Q8 [facility] Last Admin: 01/15/21 00:21 Dose: 50 mg Documented by: Hydromorphone HCl (Hydromorphone 1 Mg/Ml Syringe) 1 mg IV Q2HP PRN; Protocol PRN Reason: Per Pain Protocol Last Admin: 01/14/21 23:36 Dose: 1 mg Documented by: Heparin Sodium/Sodium Chloride (25,000 unit/ Premix) 500 mls @ 20 mls/hr IV .Q24H [facility]; Protocol Acetaminophen (Ofirmev) 650 mg in 65 mls @ 130 mls/hr IV Q6HP PRN; Protocol PRN Reason: PAIN/FEVER > 101 Last Infusion: 01/15/21 05:08 Dose: Infused Documented by: Metronidazole (Flagyl) 500 mg in 100 mls @ 100 mls/hr IV Q6H [facility]; Protocol Last Infusion: 01/15/21 01:55 Dose: Infused Documented by: Norepinephrine Bitartrate 16 (mg/ Sodium Chloride) 250 mls @ 2.813 mls/hr IV Q24H [facility]; Protocol Last Titration: 01/15/21 05:35 Dose: 10 mcg/min, 9.375 mls/hr Documented by: Sodium Chloride (Sodium Chloride 0.9%) 250 mls @ 20 mls/hr IV .[id number] [facility] Last Admin: 01/15/21 00:21 Dose: Not Given Documented by: Dobutamine HCl/Dextrose 250 mg (/ Premix) 250 mls @ 2.784 mls/hr IV .Q24H [facility]; Protocol Metoclopramide HCl (Metoclopramide 10 Mg/2 Ml Vial) 5 mg IV Q6 [facility] Last Admin: 01/15/21 00:49 Dose: 5 mg Documented by: Pantoprazole Sodium (Pantoprazole 40 Mg Vial) 40 mg IV BIDAC [facility] Scopolamine (Scopolamine 1 Patch Patch) 1 patch TOPICAL Q72H [facility] Sodium Bicarbonate (Sodium Bicarbonate 650 Mg Tablet) 650 mg PO TID [facility] Last Admin: 01/14/21 22:29 Dose: 650 mg Documented by: Sodium Bicarbonate (Sodium Bicarbonate 50 Meq/50 Ml Vial) 50 meq IV ONCE ONE Stop: 01/15/21 06:40 Sodium Chloride (0.9 % Sodium Chloride 10 Ml Syringe) 10 ml IV Q12 [facility] Last Admin: 01/14/21 21:20 Dose: 10 ml Documented by: Sodium Chloride (0.9 % Sodium Chloride 10 Ml Syringe) 10 ml IV UD PRN PRN Reason: FLUSH Last Admin: 01/15/21 05:10 Dose: 10 ml Documented by: A/P Assessment and plan (1) Volume overload state of heart: Status: Acute Comment: pulmonary edema by CXR. not responding to diuresis adding dobutamine but pt with failing heart and worsening BP (2) CKD (chronic kidney disease) stage 5, GFR less than 15 ml/min: Status: Acute Comment: diurese avoid potassium and nsaids metabolic acidosis additional bicarb to be given. considering transfer but pt not in favor of this. (3) Ischemic heart disease, acute: Status: Acute Comment: as above. technical service specialist coming in. suspected RV infarct. Time Spent With Patient Time: Total time spent is greater than 50% in coordination of care (as documented) at patient's floor/unit and/or counseling patient: 2 hours to include critical care and advanced care planning severe volume overload and ischemia of heart leading now to progressive myocardial infarction. Pt has told Mikal (latter at bedside) she doesnt desire dialysis or escalation of care to include transfer and intervention. Limited interventions, no code and plan to go to comfort care unless remarkable response to bicarb bolus and echo shows unexpectedly good LV function.
--- NOTE | 2021-01-15 06:59 | XRay Report ---
INDICATION: chf and pulmonary edema TECHNIQUE: AP portable semiupright chest x-ray COMPARISON: Previous chest x-rays dated 01/14/2021, 01/08/2021 FINDINGS: Esophagogastric tube in the stomach. Left central venous catheter in the superior vena cava. Findings are unchanged Lungs:Bilateral diffuse pulmonary parenchymal infiltrates. Filtrates are unchanged since previous examination dated 01/14/2021 at 2050, but are worse since 01/14/2021 at 1547 Heart, vascular:No significant cardiomegaly. Pulmonary vascularity is normal. No pulmonary edema or pulmonary congestion Mediastinum, cirilo:No mediastinal widening. No hilar mass Pleura:No pleural fluid. No pleural-based mass or calcification Skeletal:Negative. IMPRESSION: Bilateral diffuse pulmonary parenchymal infiltrates as above Interpreted and Authenticated by: Ryan Bhakta 01/15/21
[2021-01-15] MEDS ORDERED: PANTOPRAZOLE 40 MG VIAL IV SCH (07:30)
[2021-01-15] MEDS: 0.9 % SODIUM CHLORIDE 10 ML SYRINGE IV SCH (07:58)
[2021-01-15] MEDS: SODIUM BICARBONATE 650 MG TABLET PO SCH (07:59)
--- NOTE | 2021-01-15 08:16 | General Surgery Progress Note ---
SUBJECTIVE Subjective Patient information: Note initiated : 01/15/21 at 8:06 am Service Date, if different from initiated Date: [] Patient: Kaylyn Rodriguez 80 y/o F admitted on 01/12/21 for Exploratory Laparotomy with Excision of. Chief Complaint: [] Principal diagnosis: Abdominal wall cystic abscess Interval history: Patient had progressive deterioration starting on yesterday primarily due to volume overload and renal failure. She also complained of some chest pressure and her troponins were up however this is in the setting of's significant renal failure. She had ST and T wave changes suggestive of anterolateral ischemia. Recent echocardiogram just performed shows that she has an ejection fraction of 43%. I have had 3 discussions with the daughter and the final decision is that they wish for the patient to be made comfort care in spite of the fact that acute hemodialysis may allow her the chance for her kidneys to recover. I advised them to allow us to transfer her to a tertiary center for more input they wish to follow her requests that no long-term intervention be carried out. I will talk with Dr. Falk and the wishes of the patient and the family will be carried out. Constitutional Vitals: Vital Signs Temp Pulse Resp BP Pulse Ox 97.8 F 132 H 30 H 89/74 99 01/15/21 04:03 01/15/21 07:05 01/15/21 07:05 01/15/21 07:05 01/15/21 07:05 Period Temp Pulse Resp BP Sys/Yee Pulse Ox Last 24 Hr 97.4 F-98.1 F 79-132 16-32 51-163/19-99 87-99 Intake and Output 01/14/21 01/15/21 01/15/21 21:59 05:59 13:59 Intake Total 1200 294 108 Output Total 975 225 Balance 225 69 108 Weight 204 lb 9.6 oz Intake & Output: Intake & Output 01/14/21 01/15/21 01/15/21 21:59 05:59 13:59 Intake Total 1200 294 108 Output Total 975 225 Balance 225 69 108 Weight 204 lb 9.6 oz Intake: IV 1100 294 108 Sodium Chloride 0.9% 1,000 ml @ 1000 150 mls/hr IV .[facility] Rx#: [id number] Dobutrex 250 mg In Premix 1 Bag 8 @ 0.5 MCG/KG/MIN 2.784 mls/hr IV .Q24H [facility] Rx#:[id number] Levophed 16 mg In Sodium 29 Chloride 0.9% 234 ml @ 3 MCG/ MIN 2.813 mls/hr IV Q24H [facility] Rx #:[id number] IV - Manual Only 100 Output: Gastric Drainage 550 100 Right Nare 550 100 Drainage 75 ALVARO A 40 ALVARO B 35 Urine Catheter Amount 425 50 Other: Urine Appearance Clear Cloudy Uretheral (Arevalo) Clear Urine Color Bright Yellow Bright Yellow Uretheral (Arevalo) Bright Yellow Urine Odor Normal A/P Assessment and plan (1) Acute respiratory failure with hypoxia and hypercarbia: Status: Acute (2) Acute pulmonary edema with congestive heart failure: Status: Acute (3) Acute on chronic kidney failure: Status: Acute (4) Myocardial infarction due to demand ischemia: Status: Acute Narrative A/P Narrative: Patient is to be placed on comfort care at the request of the family. They were given other options for acute care including transfer to tertiary center for emergent dialysis and treatment of her myocardial ischemia. She has potentially treatable entities but the family decision in the patient's decision is for no further aggressive treatment. Time Spent With Patient Time: Total time spent is greater than 50% in coordination of care (as documented) at patient's floor/unit and/or counseling patient:
[2021-01-15] MEDS: HYDROmorphone 1 MG/ML SYRINGE IV PRN (08:59)
[2021-01-15] MEDS: CEFEPIME 1 GM VIAL IV SCH (08:59)
--- NOTE | 2021-01-15 09:12 | EKG ---
[facility] Test Date: 2021-01-14 Pat Name: Kaylyn Rodriguez Department: [facility] Room: 127 Gender: Female General Operator: : 1940 Requested By: Lisandra Smith Order Number: [id number] Reading MD: Luke Cox Measurements Intervals [place] Rate: 98 P: 73 NC: 156 QRS: -34 QRSD: 86 T: 153 QT: 340 QTc: 435 Interpretive Statements SINUS RHYTHM LEFT AXIS DEVIATION ST DEPRESSION, CONSIDER ISCHEMIA, ANT-LAT LDS Compared to prior ST depression is new, Rhythm is sinus. Electronically Signed On 01-15-2021 9:11:58 PDT by Luke Cox /store/M0/[id number]/[id number].pdf
--- NOTE | 2021-01-15 09:15 | EKG ---
[facility] Test Date: 2021-01-14 Pat Name: Kaylyn Rodriguez Department: [facility] Room: 127 Gender: Female Biometrics Consultant: : 1940 Requested By: Ben Falk Order Number: [id number] Reading MD: Luke Cox Measurements Intervals [place] Rate: 103 P: 0 AR: 136 QRS: -59 QRSD: 104 T: 147 QT: 348 QTc: 456 Interpretive Statements Excessive artifact. SINUS TACHYCARDIA REPOL ABNRM, DIFFUSE LEADS Electronically Signed On 01-15-2021 9:15:11 PDT by Luke Cox /store/M0/[id number]/[id number].pdf
--- NOTE | 2021-01-15 09:16 | EKG ---
[facility] Test Date: 2021-01-15 Pat Name: Kaylyn Rodriguez Department: ICU Room: 120B Gender: Female Can Marker: : 1940 Requested By: Ben Falk Order Number: [id number] Reading MD: Luke Cox Measurements Intervals [place] Rate: 117 P: 19 FL: 176 QRS: -61 QRSD: 96 T: 121 QT: 300 QTc: 419 Interpretive Statements SINUS TACHYCARDIA Incomplete LBBB INCOMPLETE LEFT BUNDLE BRANCH BLOCK INCOMPLETE LEFT BUNDLE BRANCH BLOCK is new compared to prior Electronically Signed On 01-15-2021 9:16:52 PDT by Luke Cox /store/M0/[id number]/[id number].pdf
[2021-01-15] MEDS: PANTOPRAZOLE 40 MG VIAL IV SCH (09:20)
[2021-01-15] MEDS ORDERED: ONDANSETRON 4 MG/2 ML VIAL IV PRN (09:23)
[2021-01-15] MEDS ORDERED: morphine 4 MG/ML VIAL IV PRN (09:23)
[2021-01-15] MEDS ORDERED: LORazepam 2 MG/ML VIAL IV PRN (09:23)
[2021-01-15] MEDS ORDERED: SCOPOLAMINE 1 PATCH PATCH TOPICAL SCH (10:00)
--- NOTE | 2021-01-15 13:26 | Surgical Pathology Report ---
Histology Microscopic Diagnosis Specimen A- SOFT TISSUE, ABDOMEN, SUBCUTANEOUS MASS, EXCISION: --- MATURE ADIPOSE TISSUE, CONSISTENT WITH LIPOMA. (RLF) Gross Description Received in formalin labeled subcutaneous mass, is a piece of bernal fatty tissue measuring 2.7 x 1.7 x 1.3 cm. The external surface is inked black. The cut surfaces are bernal. The specimen is sectioned and totally submitted in two cassettes. (SCB:lm) Electronically Signed Chloé Verduzco MD, FCAP Electronically Signed 01/15/2021 13:24
[2021-01-15] MEDS ORDERED: 0.9 % SODIUM CHLORIDE 10 ML SYRINGE IV SCH ×2 (14:00)
--- NOTE | 2021-01-24 14:22 | Operative Note ---
DATE OF OPERATION: 01/12/2021 PREOPERATIVE DIAGNOSES: Inflammatory mass of abdominal wall in incisional hernia. POSTOPERATIVE DIAGNOSES: Inflammatory mass of abdominal wall in incisional hernia with intra-abdominal adhesions. PROCEDURE: Excision of inflammatory mass of abdominal wall, 5 x 7 cm, with repair of incisional hernia with Vicryl mesh overlay. SURGEON: Lisandra Smith M.D. DESK SERGEANT: Regan Diaz M.D. FINDINGS: Dense, inflammatory, cystic mass with purulent contents and dense adhesions to the fascia, omentum and small bowel. DESCRIPTION OF PROCEDURE: Under general anesthesia, the patient's abdomen was prepped and draped in a sterile field. A Arevalo catheter and nasogastric tube was inserted. A midline incision was made above and below the palpable mass in the lower midline. The mass was significantly indurated with dense, inflammatory changes. There was a cystic mass in the infraumbilical midline extending to the left. It was circumferentially excised and sent for pathologic evaluation. The cyst contents appeared to be purulent and cultures were taken. Once the cystic mass was excised, the dense adhesions of the omentum and small bowel were incised. The bowel was placed back into the peritoneal cavity. Subcutaneous dissection in the fascial plane was carried out over to the junction of the rectus and the oblique muscles. Once this was done, it was felt that separation of components was not needed. The fascia was closed with running locking #1 Prolene. ALVARO drains were placed in the subcutaneous tissue bilaterally and brought out through separate incisions. The Vicryl mesh graft was doubled and placed over the fascia. It was sutured to the fascia circumferentially and in the midline. Subcutaneous fat was closed over this with a running 2-0 Vicryl. Skin was closed with jamar. Drains were secured with 2-0 nylon. Tegaderm dressings were placed. The patient was awakened, transferred to a bed, and taken to the postanesthetic care unit in satisfactory condition. LCS:loy Job ID: [id number] Doc ID: [id number] Lisandra Smith M.D.
--- NOTE | 2021-03-21 15:06 | Discharge Plan ---
Discharge Plan Patient/Caregiver Discharge Instructions Prescriptions: No Action cholecalciferol (vitamin D3) 5,000 UNIT capsule 5,000 unit PO DAILY 0RF cyanocobalamin (vitamin B-12) 1,000 MCG/ML kit 1,000 mcg IJ MONTHLY 0RF cephalexin 250 mg Tablet 250 mg PO QDAY 0RF hydrochlorothiazide 25 mg tablet 25 mg PO QDAY 0RF Follow Up Plan Patient Disposition: Prognosis: Discharge Comment: 01/15/2021 1115
--- NOTE | 2021-03-21 15:19 | Discharge Summary ---
Discharge Provider Provider Patient information: Note initiated : 03/21/21 at 3:08 pm Service Date, if different from initiated Date: [] Patient: Kaylyn Rodriguez 80 y/o F admitted on 01/12/21 for Exploratory Laparotomy with Excision of. Chief Complaint: Inflammatory mass of abdominal wall Incisional hernia [] Date of admission: 01/12/21 12:31 Discharge date: 01/15/21 Primary care physician: Gaby Bradford Admitting clinician: Lisandra Smith Attending physician on admission: Lisandra Smith Consults: 01/14/21 15:09 Consult to Physician [CONS] Routine Comment: pt c/o chest pain; abnormal EKG Consulting Provider: Ben Falk Reason For Exam: Physician to Consult 01/15/21 07:42 Consult to Physician [CONS] Routine Comment: Consulting Provider: Fausto Stroud Reason For Exam: Physician to Consult Attending physician on discharge: Lisadnra Smith Discharging clinician: Lisandra Smith COURSE Hospital Course Hospital course: 80-year-old female with history of inflammation and bleeding from her umbilicus. She was evaluated on December 05. Cultures of the drainage was negative for bacteria. Because she had a mass in the infraumbilical area protruding to the left of midline she was informed that she needed to have laparotomy with exploration and excision of the area. The patient underwent excision of an inflammatory mass of the abdominal wall measuring 5 x 7 cm with repair of incisional hernia and Vicryl mesh overlay. She had no problems in the intraoperative period. She however developed increasing shortness of breath and decreased urine output. She has a history of chronic kidney disease stage IV preoperatively. She was given multiple doses of diuretics without improvement. She demonstrated areas of severe volume overload and in the face of progressive renal failure it was decided that she needed to have dialysis. This was discussed with the patient however she refused to be transferred for dialysis or for more critical care. She developed chest pressure and pain on the and EKG showed ST-T wave changes compatible with ischemia. Her troponins were up bu t because of her severe renal failure it was not known what the actual levels were. She was seen by nephrology who suggested acute dialysis. I had 3 discussions with the daughter about the need for transfer because she had a treatable condition and was otherwise doing well. She however needed to have aggressive cardiac intervention as well as emergency dialysis. The family were advised that acute dialysis would prevent her from possibly extending her infarct and allow her a chance for her kidneys to recover. I discussed very strongly with them and asked them to allow us to transfer her to a tertiary center but they stated that the patient had requested that no long-term intervention be carried out and they refused to transfer. At their request acute care including intravenous pressors were discontinued about 8 AM and the patient vaughn Arevalo with the family present at 09 35 on 15 January 2021. Discharge diagnosis: Inflammatory mass of anterior abdominal wall Secondary discharge diagnosis: Acute on chronic kidney failure with renal shutdown Acute myocardial ischemia Acute congestive heart failure Reason for admission: Postoperative status post excision of inflammatory mass of abdominal wall Procedures: Excision of inflammatory mass of abdominal wall Repair of incisional hernia with Vicryl mesh overlay Central venous catheter placement Pertinent studies/significant findings: Emergency echocardiogram Complications: Acute renal failure Acute myocardial ischemia Acute congestive heart failure with pulmonary edema Time Spent with Patient Time attestation: Total time spent providing and/or coordinating discharge services: Time spent: Greater than 30 minutes (120 minutes) Specific discharge activities: Patient was pronounced at 0 935 on 15 January 2021 Physical Examination Vital Signs Vital signs: Temp Pulse Resp BP Pulse Ox 97.5 F 126 H 18 69/36 100 01/15/21 07:32 01/15/21 08:16 01/15/21 09:31 01/15/21 09:31 01/15/21 08:16 Discharge Plan Patient/Caregiver Discharge Instructions Prescriptions: No Action cholecalciferol (vitamin D3) 5,000 UNIT capsule 5,000 unit PO DAILY 0RF cyanocobalamin (vitamin B-12) 1,000 MCG/ML kit 1,000 mcg IJ MONTHLY 0RF cephalexin 250 mg Tablet 250 mg PO QDAY 0RF hydrochlorothiazide 25 mg tablet 25 mg PO QDAY 0RF Follow Up Plan Patient Disposition: Prognosis: Discharge Orders: Discharge Order (Routine); Ordered 03/21/21 Ordered By: Lisandra Smith Discharge Comment: 01/15/2021 1110 Pending Pending Pending: Diet NPO Diet (NOW) Start 2020Jan 12 1231 Shift Summary 01/15/21 03:56 Shift Summary by Anastasia Boyd Primary Diagnosis: Excision of Abdominal Wall Mass and Repair of large Incisional Hernia Registration Status: PCU Inpatient as of 01/14/21 at 18:25 Day of Hospitalization: 4 Date of Surgery (if applicable): 01/12/2021 Pertinent Medical Dx/Issues (may be more than one): Interventions (O2, wounds, diuresis, etc): Placed on BiPap upon arrival to the ICU, current settings 16/10 with 100% FiO2 et an SpO2 in the mid 90s. Pt tachypneic a slightly dyspneic. Midline incision with [address] et 2 JPs, draining serosanguineous fluid. Sacral dressing place for protection. Vital Signs with Trends: Hypotensive, currently on Levophed 10 mcg/min. Troponin 0.08, 0.49 et 0.76 with another Troponin to be drawn this morning. Meds (abo, pain, BP, etc): Heparin drip at 1000 units/hr. APTT to be drawn this morning. Last APTT 83-no changes. On Flagyl, Reglan, new order Solu-cortef q 8 hrs. Received 80 units Lasix iv , Bumex 2 mg iv et Zaroxolyn 5 mg po. Bicarb 50 mEq iv et Bicarb po. UO 75 ml after Lasix et 25 ml twice after Bumex. Pt has only one kidney. Possibly needs dialysis/cardiology. [facility] will start acute dialysis today again. SCDs in place. Lines/Tubes: 22 ga RW with heparin infusing. Left subclavian quad lumen CL inserted by last evening at 20:30 with Levophed infusing. Right nare NGT to low intermittent suction-100 ml green fluid. Oxygen needs (home use vs. current use): 100% via BiPap Lab/Rad results: Cardiac Rhythm (if applicable), alarms, trends: Sinustachycardia HR 100s-120s. Was given Metoprolol 5 mg iv once. Date of last BM: Elimination: F/C Recommendations/questions for MD (KOLBY Arevalo? KOLBY PEARL? PICC needed?): Vent/Bipap/Cpap: Trends (is the patient improving?): Activity: Bedrest Expected date of discharge: Discharge Plan (needs, disposition, etc): Initialized on 01/15/21 03:56 - END OF NOTE
== END 2021-01-15 11:10 | disposition expired | DRG 353 ==
LOC: MEDSUROUT 04:55 → MEDSUR 04:56 → ICU 01-14 18:25
PROVIDERS: ADMIT Family Medicine Adult Medicine; ATTEND Family Medicine Adult Medicine